=== PATIENT | male | born 1930 | race Caucasian/White ===

== ENCOUNTER 2017-08-15 06:38 | Emergency (ER) | payer MEDICARE, OTHER ==
[~2017-08-15] VITALS: Ht 175.3 cm; Wt 72.7 kg
[~2017-08-15 06:38] MED LIST: CALA180T PO; KCL10C PO; LEVA750T PO; SYMB80AE INH; Z.0.WALKERFRONT
[2017-08-15 06:40] VITALS: BP 142/86; PULSE 102; RESP 16; TEMP 98.5; O2SAT 98
[2017-08-15 06:46] VITALS: BP 145/87; PULSE 114; RESP 21; O2SAT 93
[2017-08-15] MEDS ORDERED: FURO40TA PO (06:53)
[2017-08-15] MEDS ORDERED: SYMB80AE INH (06:53)
[2017-08-15] MEDS ORDERED: VERA120T3 PO (06:53)
[2017-08-15 06:56] VITALS: O2SAT 95
[2017-08-15 07:13] VITALS: O2SAT 97
[2017-08-15] MEDS ORDERED: oxyCODONE/ACETAMINOPHEN 5 MG/325 MG TAB PO ONE (07:15)
[2017-08-15 07:24] VITALS: BP 128/82; PULSE 107; RESP 16; O2SAT 97
[2017-08-15] MEDS ORDERED: SODIUM CHLORIDE 0.9% FLUSH 10 ML FLUSH IV FLUSH PRN (07:30)
[2017-08-15] MEDS ORDERED: SODIUM CHLORID 0.9% 500 ML INJ 500 ML IV ONE (07:30)
[2017-08-15 07:43] LABS: AUTOMATED NEUTROPHIL # 7.4 TH/MM3 (1.8-7.7); BASOPHIL % 0.5 % (0.0-2.0); EOSINOPHIL # 0.8 TH/MM3 (0-0.4); EOSINOPHIL % 8.4 % (0.0-4.0); HEMATOCRIT 36.8 % (39.0-51.0); LYMPH % 9.2 % (9.0-44.0); LYMPHOCYTE # 0.9 TH/MM3 (1.0-4.8); MEAN CELL VOLUME 81.7 FL (80.0-100.0); MEAN CORPUSCULAR HEMOGLOBIN 27.2 PG (27.0-34.0); MEAN CORPUSCULAR HGB CONC 33.3 % (32.0-36.0); MONO % 7.1 % (0.0-8.0); NEUT % 74.8 % (16.0-70.0); PLATELET COUNT 59 TH/MM3 (150-450); RED CELL DISTRIBUTION WIDTH 18.8 % (11.6-17.2); WHITE BLOOD COUNT 9.9 TH/MM3 (4.0-11.0)
[2017-08-15] MEDS ORDERED: VERAPAMIL HCL 180 MG SUSTAINED RELEASE TAB PO ONE (07:45)
[2017-08-15 07:56] LABS: HEMO FLAGS AUTO DIFF
[2017-08-15 08:00] LABS: POTASSIUM 4.1 MEQ/L (3.5-5.1)
[2017-08-15] MEDS ORDERED: TRAM50TA PO (08:16)
--- NOTE | 2017-08-15 08:17 | PD ---
HPI Chief Complaint: Fall Time Seen by Provider: 07:05 Travel History International Travel<30 days: No Contact w/Intl Traveler<30days: No Traveled to known affect area: No History of Present Illness HPI 86 yo M c/o L chest pain after a mechanical fall yesterday afternoon while the patient was in the bathroom. No head trauma or LOC. L chest wall pain worsened overnight, worse with deep inspiration. No fever or cough. No [place] or dyspnea at rest. Pt did not take verapamil this morning. onset sudden. severity moderate. PFSH Past Medical History Asthma: Yes Anxiety: No Depression: No Heart Rhythm Problems: No Cancer: No Cardiovascular Problems: No High Cholesterol: No Chest Pain: No Congestive Heart Failure: No COPD: No Cerebrovascular Accident: Yes Endocrine: No Genitourinary: No Hepatitis: Yes (HEPATITIS C) Hypertension: Yes Immune Disorder: No Implanted Vascular Access Dvce: No Musculoskeletal: No Neurologic: No Psychiatric: No Reproductive: No Respiratory: Yes Sleep Apnea: No Past Surgical History Abdominal Surgery: Yes (HERNIA) AICD: No Appendectomy: Yes Arteriovenous Shunt: No Cardiac Surgery: No Ear Surgery: No Endocrine Surgery: No Eye Surgery: No Genitourinary Surgery: No Gynecologic Surgery: No Insulin Pump: No Joint Replacement: No Oral Surgery: No Pacemaker: No Thoracic Surgery: No Other Surgery: Yes Social History Alcohol Use: No Tobacco Use: No Substance Use: No Allergies-Medications (Allergen,Severity, Reaction): Coded Allergies: aspirin (Unverified Allergy, Severe, ANAPYLACTIC, 07/05/17) Reported Meds & Prescriptions Reported Meds & Active Scripts Active Tramadol (Tramadol HCl) 50 Mg Tab 50 Mg PO Q8H PRN Walker Front Wheel (Z.0.walkerfront) Device 1 Unit Levaquin 750 Mg Tab (Levofloxacin) 750 Mg Tab 750 Mg PO DAILY Reported Verapamil (Verapamil HCl) 120 Mg Tab 180 Mg PO BID Furosemide 40 Mg Tab 40 Mg PO DAILY Symbicort Inh (Budesonide/Formoterol Fumarate) 80-4.5 Mcg/Act Aero 2 Puff INH Q12HR Symbicort (Budesonide/Formoterol Fumarate) 80 Mcg/4.5 Mcg Aer 2 Puff INH BID * SHAKE WELL BEFORE USE * Verapamil Hcl Er (Verapamil HCl) 180 Mg Tab 180 Mg PO DAILY KCl 10 Meq Cap (Potassium Chloride) 10 Meq Capcr 5 Meq PO HS Review of Systems Except as stated in HPI: all other systems reviewed are Neg General / Constitutional: No: Fever Neurologic: No: Incontinence, Seizures, Sensory Disturbance Physical Exam Narrative GENERAL: 86 yo M, WNWD, NAD SKIN: Warm and dry. HEAD: Atraumatic. Normocephalic. EYES: Pupils equal and round. No scleral icterus. No injection or drainage. ENT: No nasal bleeding or discharge. Mucous membranes pink and moist. NECK: Trachea midline. No JVD. CARDIOVASCULAR:Regular rhythm. Rate approx 105. RESPIRATORY: Lung sounds present bilaterally. Normal respiratory rate. Lung sound clear. No flailed chest. GASTROINTESTINAL: Abdomen soft, non-tender, nondistended. Hepatic and splenic margins not palpable. MUSCULOSKELETAL: Extremities without clubbing, cyanosis, or edema. No obvious deformities. NEUROLOGICAL: Awake and alert. No obvious cranial nerve deficits. Motor grossly within normal limits. Five out of 5 muscle strength in the arms and legs. Normal speech. PSYCHIATRIC: Appropriate mood and affect; insight and judgment normal. Data Data Last Documented VS Vital Signs Date Time Temp Pulse Resp B/P (MAP) Pulse Ox O2 Delivery O2 Flow Rate FiO2 08/15/17 07:24 107 16 128/82 (97) 97 Nasal Cannula 2.00 08/15/17 06:40 98.5 VS reviewed Orders Orders Chest, Pa & Lat (08/15/17 ) Oxycodone-Acetamin 5-325 Mg (Percocet (08/15/17 07:15) Resp Incentive Spirometry (08/15/17 ) Basic Metabolic Panel (Bmp) (08/15/17 07:18) Complete Blood Count With Diff (08/15/17 07:18) Iv Access Insert/Monitor (08/15/17 07:18) Ecg Monitoring (08/15/17 07:18) Oximetry (08/15/17 07:18) Sodium Chloride 0.9% Flush (Ns Flush) (08/15/17 07:30) Sodium Chlorid 0.9% 500 Ml Inj (Ns 500 M (08/15/17 07:30) Verapamil Sr (Isoptin Sr) (08/15/17 07:45) Labs Laboratory Tests Test 08/15/17 07:30 White Blood Count 9.9 TH/MM3 Red Blood Count 4.50 MIL/MM3 Hemoglobin 12.2 GM/DL Hematocrit 36.8 % Mean Corpuscular Volume 81.7 FL Mean Corpuscular Hemoglobin 27.2 PG Mean Corpuscular Hemoglobin Concent 33.3 % Red Cell Distribution Width 18.8 % Platelet Count 59 TH/MM3 Mean Platelet Volume 7.9 FL Neutrophils (%) (Auto) 74.8 % Lymphocytes (%) (Auto) 9.2 % Monocytes (%) (Auto) 7.1 % Eosinophils (%) (Auto) 8.4 % Basophils (%) (Auto) 0.5 % Neutrophils # (Auto) 7.4 TH/MM3 Lymphocytes # (Auto) 0.9 TH/MM3 Monocytes # (Auto) 0.7 TH/MM3 Eosinophils # (Auto) 0.8 TH/MM3 Basophils # (Auto) 0.0 TH/MM3 CBC Comment AUTO DIFF Differential Comment AUTO DIFF CONFIRMED Platelet Estimate LOW Platelet Morphology Comment NORMAL Ovalocytes 1+ Acanthocytes 1+ Blood Urea Nitrogen 14 MG/DL Creatinine 0.86 MG/DL Random Glucose 132 MG/DL Calcium Level 8.9 MG/DL Sodium Level 138 MEQ/L Potassium Level 4.1 MEQ/L Chloride Level 110 MEQ/L Carbon Dioxide Level 22.0 MEQ/L Anion Gap 6 MEQ/L Estimat Glomerular Filtration Rate 85 ML/MIN MDM Medical Decision Making Medical Screen Exam Complete: Yes Emergency Medical Condition: Yes Medical Record Reviewed: Yes Differential Diagnosis PTX, rib fracture, pulmonary contusion, flail chest, PNA, anemia, renal failure , infection Narrative Course CBC & BMP Diagram 08/15/17 07:30 Calcium Level 8.9 Mild tachycardia, likely pain, mild dehydration and overdue for Verapamil Pain controlled 300cc NS Reassessed at 815AM, reports feeling much better Incentive spirometry instructions D/c with pain control Return precautions discussed Diagnosis Primary Impression: Fall Qualified Codes: W19.XXXA - Unspecified fall, initial encounter Additional Impressions: Contusion of rib on left side Qualified Codes: S20.212A - Contusion of left front wall of thorax, initial encounter Tachycardia Referrals: Primary Care Physician 2 days Med/Other Pt SpecificInfo: Prescription(s) given Scripts Tramadol (Tramadol) 50 Mg Tab 50 MG PO Q8H Y for PAIN SCALE 6 TO 10, #30 TAB 0 Refills Prov: Bry Fuchs MD 08/15/17 Disposition: 01 DISCHARGE HOME Condition: Stable Bry Fuchs MD Aug 15, 2017 08:16
[2017-08-15 08:41] LABS: ACANTHOCYTES 1+ (NORMAL); OVALOCYTES 1+ (NORMAL)
[2017-08-15 08:42] LABS: PLATELET ESTIMATE SMEAR LOW (NORMAL); PLATELET MORPHOLOGY NORMAL (NORMAL); SCAN/DIFF AUTO DIFF CONFIRMED
[2017-08-15 09:23] VITALS: BP 140/85
--- NOTE | 2017-08-15 09:43 | RADRPT ---
EXAM DATE/TIME: 08/15/2017 08:05 [facility] COMPARISON: CHEST SINGLE AP, October 22, 2015, 21:26. INDICATIONS : Left upper chest pain after feeling dizzy and falling. MEDICAL HISTORY : None. SURGICAL HISTORY : Hiatal hernia repair. ENCOUNTER: Initial ACUITY: 1 day PAIN SCORE: 9/10 LOCATION: Left chest Upper left chest. FINDINGS: There are subtle parenchymal densities in the upper lobe suspect for underlying airspace disease vers us atelectasis. No effusion or consolidation. Cardiomegaly. Degenerative changes of the spine. CONCLUSION: Upper lobe airspace disease versus atelectasis. Prosper Garcia MD on August 15, 2017 at 9:42 Board Certified Radiologist. This report was verified electronically.
--- NOTE | 2017-08-15 13:02 | EKG ---
Date Performed: 08/15/2017 Time Performed: 06:55:51 PTAGE: 86 years EKG: The underlying rhythm appears to be sinus with resolution of a previous first degree AV blo ck Right bundle branch block, which is old ABNORMAL ECG PREVIOUS TRACING : 10/23/2015 17.08 DOCTOR: Erik Mcrae Interpretating Date/Time 08/15/2017 13:51:43
== END 2017-08-15 09:00 | disposition home or self-care (01) ==
LOC: NEPC 06:38
DX: S20.212A Contusion of left front wall of thorax, initial encounter (principal); W19.XXXA Unspecified fall, initial encounter; J45.909 Unspecified asthma, uncomplicated
CPT/HCPCS: 71020; 80048; 85025; 93005; 94150; 96360; 99284; J7040

== ENCOUNTER 2017-08-31 18:26 | Emergency (ER) | payer OTHER ==
[~2017-08-31] VITALS: Ht 175.3 cm; Wt 76.0 kg
[~2017-08-31 18:26] MED LIST changes: +FURO40TA PO; +TRAM50TA PO; +VERA120T3 PO
[2017-08-31] MEDS ORDERED: GADODIAMIDE PF 287 MG/ML 5 ML VIAL (for RAD MRI) IV PUSH ONE (18:27)
[2017-08-31 18:30] VITALS: BP 122/74; PULSE 87; RESP 20; TEMP 98.6; O2SAT 94
[2017-08-31 18:47] VITALS: BP 121/75; PULSE 81; RESP 17
[2017-08-31 18:58] VITALS: O2SAT 97
[2017-08-31] MEDS ORDERED: SODIUM CHLORIDE 0.9% FLUSH 10 ML FLUSH IVF PRN (19:00)
--- NOTE | 2017-08-31 19:03 | PD ---
HPI Chief Complaint: Head Injury Time Seen by Provider: 18:55 Travel History International Travel<30 days: No Contact w/Intl Traveler<30days: No Traveled to known affect area: No History of Present Illness HPI Patient comes in for reevaluation status post fall on the of last month. Patient was seen and evaluated the emergency department discharged home at that time. Patient followed up with primary care doctor's office today and sent back to the emergency department for CTs secondary the patient's history of thrombocytopenia. Patient is followed by hematology for this. Patient reports he continues having intermittent headaches a states her left occipital lobe along with left-sided neck pain that comes and goes. Patient's states that he is also seems to be more confused since the fall. States she still given him tramadol thinking that might be causing some of his confusion. Patient denies any pain currently. Patient was pain is lingering pain improves with Tylenol. Patient reports she doesn't eat or is having bad stress makes his symptoms worse. PFSH Past Medical History Asthma: Yes Anxiety: No Depression: No Heart Rhythm Problems: No Cancer: No Cardiovascular Problems: No High Cholesterol: No Chest Pain: No Congestive Heart Failure: No COPD: No Cerebrovascular Accident: Yes Endocrine: No Gastrointestinal Disorders: No Genitourinary: No Hepatitis: Yes (HEPATITIS C) Hypertension: Yes Immune Disorder: No Implanted Vascular Access Dvce: No Musculoskeletal: No Neurologic: No Psychiatric: No Reproductive: No Respiratory: Yes Sleep Apnea: No Past Surgical History Abdominal Surgery: Yes (HERNIA) AICD: No Appendectomy: Yes Arteriovenous Shunt: No Cardiac Surgery: No Ear Surgery: No Endocrine Surgery: No Eye Surgery: No Genitourinary Surgery: No Gynecologic Surgery: No Insulin Pump: No Joint Replacement: No Oral Surgery: No Pacemaker: No Thoracic Surgery: No Other Surgery: Yes Social History Alcohol Use: No Tobacco Use: No Substance Use: No Allergies-Medications (Allergen,Severity, Reaction): Coded Allergies: aspirin (Unverified Allergy, Severe, ANAPYLACTIC, 08/31/17) Reported Meds & Prescriptions Reported Meds & Active Scripts Active Reported Verapamil (Verapamil HCl) 120 Mg Tab 180 Mg PO BID Furosemide 40 Mg Tab 40 Mg PO DAILY Symbicort Inh (Budesonide/Formoterol Fumarate) 80-4.5 Mcg/Act Aero 2 Puff INH Q12HR Review of Systems Except as stated in HPI: all other systems reviewed are Neg Physical Exam Narrative GENERAL: Well-developed, well nourished, in no acute distress, and non-ill appearing. SKIN: Focused skin assessment warm and dry. HEAD: Atraumatic. Normocephalic. EYES: Pupils equal and round. EOMI. No scleral icterus. No injection or drainage. ENT: No nasal bleeding or discharge. Mucous membranes pink and moist. NECK: Trachea midline. No tenderness or crepitus or midline cervical spine. Supple. No nuclear rigidity. CARDIOVASCULAR: Regular rate and rhythm. No murmur appreciated. RESPIRATORY: No accessory muscle use. No respiratory distress. Clear to auscultation. Breath sounds equal bilaterally. MUSCULOSKELETAL: No obvious deformities. No clubbing. No cyanosis. No edema. Full range of motion. NEUROLOGICAL: Awake and alert. No obvious cranial nerve deficits. Motor grossly within normal limits. Normal speech. PSYCHIATRIC: Appropriate mood and affect; insight and judgment normal. Data Data Last Documented VS Vital Signs Date Time Temp Pulse Resp B/P (MAP) Pulse Ox O2 Delivery O2 Flow Rate FiO2 08/31/17 22:38 08/31/17 21:36 70 16 98 Room Air 08/31/17 18:30 98.6 Orders Orders Complete Blood Count With Diff (08/31/17 18:55) Basic Metabolic Panel (Bmp) (08/31/17 18:55) Ct Brain W/O Iv Contrast(Rout) (08/31/17 18:55) Ecg Monitoring (08/31/17 18:55) Iv Access Insert/Monitor (08/31/17 18:55) Oximetry (08/31/17 18:55) Sodium Chloride 0.9% Flush (Ns Flush) (08/31/17 19:00) Ct Cerv Spine W/O Contrast (08/31/17 ) Mri Brain W&W/O Contrast (08/31/17 ) Gadodiamide Pf Inj (Omniscan Pf Inj) (08/31/17 18:27) Ed Discharge Order (08/31/17 22:12) Labs Laboratory Tests Test 08/31/17 19:10 White Blood Count 4.0 TH/MM3 Red Blood Count 4.36 MIL/MM3 Hemoglobin 11.8 GM/DL Hematocrit 36.4 % Mean Corpuscular Volume 83.5 FL Mean Corpuscular Hemoglobin 27.2 PG Mean Corpuscular Hemoglobin Concent 32.5 % Red Cell Distribution Width 19.2 % Platelet Count 72 TH/MM3 Mean Platelet Volume 7.6 FL Neutrophils (%) (Auto) 56.1 % Lymphocytes (%) (Auto) 22.2 % Monocytes (%) (Auto) 7.6 % Eosinophils (%) (Auto) 12.8 % Basophils (%) (Auto) 1.3 % Neutrophils # (Auto) 2.2 TH/MM3 Lymphocytes # (Auto) 0.9 TH/MM3 Monocytes # (Auto) 0.3 TH/MM3 Eosinophils # (Auto) 0.5 TH/MM3 Basophils # (Auto) 0.1 TH/MM3 CBC Comment AUTO DIFF Differential Comment AUTO DIFF CONFIRMED Platelet Estimate LOW Platelet Morphology Comment NORMAL Tear Drop Cells 1+ Ovalocytes 1+ Blood Urea Nitrogen 11 MG/DL Creatinine 0.82 MG/DL Random Glucose 209 MG/DL Calcium Level 8.6 MG/DL Sodium Level 138 MEQ/L Potassium Level 4.0 MEQ/L Chloride Level 106 MEQ/L Carbon Dioxide Level 23.8 MEQ/L Anion Gap 8 MEQ/L Estimat Glomerular Filtration Rate 89 ML/MIN MDM Medical Decision Making Medical Screen Exam Complete: Yes Emergency Medical Condition: Yes Differential Diagnosis Post traumatic headache, hemorrhage, musculoskeletal pain, strain, other Narrative Course Patient was seen and examined. IV was established and patient was placed on cardiac monitoring. Initial laboratory radiological studies were ordered. Discussed abnormal CT findings with Dr. Flores, who recommends obtaining MRI. Discussed this with patient and his , who is agreeable to have MRI. Patient in no obvious distress upon re-evaluation. All pertinent laboratory/ Radiology result(s) discussed with patient/family. Discussed patient with Dr. Flores prior to discharge, who is in agreement with plan of care and disposition. Any questions/concerns in reference to patient diagnosis/condition discussed and clarified prior to patient's discharge. Reinforced sheer importance of close follow up with patient's primary physician or primary care clinic. Instructed patient to return to ED immediately, if symptoms return/worsen. Patient showed understanding of above instructions. Further instructions and recommendations were detailed in discharge paperwork. Patient left without difficulty out of ED at discharge. Diagnosis Primary Impression: Headache Qualified Codes: R51 - Headache Additional Impression: Neck pain Patient Instructions: Acute Neck Pain (ED), General Headache (ED), General Instructions Additional Instructions: Follow-up with your primary care physician and/or neurologist next week for reevaluation. Continue using [id number] Tylenol as needed for headache and/or pain. Follow instructions on the packaging. Return to the emergency department if symptoms get worse. Disposition: 01 DISCHARGE HOME Condition: Stable Hector Kwan Aug 31, 2017 19:03
[2017-08-31 19:11] VITALS: BP 126/77; PULSE 87; RESP 18; O2SAT 97
[2017-08-31 19:32] LABS: AUTOMATED NEUTROPHIL # 2.2 TH/MM3 (1.8-7.7); BASOPHIL # 0.1 TH/MM3 (0-0.2); BASOPHIL % 1.3 % (0.0-2.0); EOSINOPHIL # 0.5 TH/MM3 (0-0.4); EOSINOPHIL % 12.8 % (0.0-4.0); HEMATOCRIT 36.4 % (39.0-51.0); LYMPH % 22.2 % (9.0-44.0); LYMPHOCYTE # 0.9 TH/MM3 (1.0-4.8); MEAN CELL VOLUME 83.5 FL (80.0-100.0); MEAN CORPUSCULAR HEMOGLOBIN 27.2 PG (27.0-34.0); MEAN CORPUSCULAR HGB CONC 32.5 % (32.0-36.0); MONO % 7.6 % (0.0-8.0); NEUT % 56.1 % (16.0-70.0); PLATELET COUNT 72 TH/MM3 (150-450); RED BLOOD COUNT 4.36 MIL/MM3 (4.50-5.90); RED CELL DISTRIBUTION WIDTH 19.2 % (11.6-17.2)
[2017-08-31 19:33] LABS: HEMO FLAGS AUTO DIFF
--- NOTE | 2017-08-31 20:02 | RADRPT ---
EXAM DATE/TIME: 08/31/2017 19:43 [facility] COMPARISON: No previous studies available for comparison. INDICATIONS : Headaches that started one week ago. RADIATION DOSE: 46.71 CTDIvol (mGy) MEDICAL HISTORY : Hypertension. Hepatitis C. CVA. SURGICAL HISTORY : Appendectomy. ENCOUNTER: Initial ACUITY: 1 week PAIN SCALE: 6/10 LOCATION: Bilateral cranial TECHNIQUE: Multiple contiguous axial images were obtained of the head. Using automated exposure control and adj ustment of the mA and/or kV according to patient size, radiation dose was kept as low as reasonably a chievable to obtain optimal diagnostic quality images. DICOM format image data is available electro nically for review and comparison. FINDINGS: There is abnormal low attenuation in the posterior white matter on the right side probably from prior ischemic infarct. No significant mass effect. Cannot completely exclude edema. Nodular surface. No a bnormal extra-axial fluid collections. Extensive mucosal thickening in the paranasal sinus with previ ous endoscopic sinus surgery and creation of nasoantral windows bilaterally. CONCLUSION: 1. Abnormal low attenuation in the right periventricular white matter especially posteriorly. This pr obably relates to prior ischemic change but MRI brain recommended with contrast to exclude underlying lesion. Josh Lyle MD on August 31, 2017 at 19:57 Board Certified Radiologist. This report was verified electronically.
[2017-08-31 20:07] LABS: OVALOCYTES 1+ (NORMAL); PLATELET ESTIMATE SMEAR LOW (NORMAL); PLATELET MORPHOLOGY NORMAL (NORMAL); SCAN/DIFF AUTO DIFF CONFIRMED; TEARDROP RBCS 1+ (NORMAL)
--- NOTE | 2017-08-31 20:14 | RADRPT ---
EXAM DATE/TIME: 08/31/2017 19:43 [facility] COMPARISON: No previous studies available for comparison. INDICATIONS : Neck pain for one weeks. RADIATION DOSE: 40.83 CTDIvol (mGy) MEDICAL HISTORY : Hepatitis C. Hypertension. CVA SURGICAL HISTORY : Appendectomy. ENCOUNTER: Initial ACUITY: 1 week PAIN SCALE: 6/10 LOCATION: Bilateral neck region. TECHNIQUE: Volumetric scanning of the cervical spine was performed. Multiplanar reconstructions in the sagittal, coronal and oblique axial planes were performed. Using automated exposure control and adjustment o f the mA and/or kV according to patient size, radiation dose was kept as low as reasonably achievable to obtain optimal diagnostic quality images. DICOM format image data is available electronically f or review and comparison. FINDINGS: There is exaggeration of the normal cervical lordosis. Advanced degenerative disc disease is present. Minimal grade 1 retrolisthesis of C3 on C4. No central bony canal stenosis. Left-sided foraminal phuong nosis present at C3-4 and mild bilateral foraminal stenosis at C4-5-6. No acute fracture. CONCLUSION: 1. No acute fracture. No canal stenosis. Degenerative changes as above. Josh Lyle MD on August 31, 2017 at 20:10 Board Certified Radiologist. This report was verified electronically.
[2017-08-31 21:03] LABS: BICARBONATE 23.8 MEQ/L (21.0-32.0)
[2017-08-31 21:36] VITALS: BP 135/67; PULSE 70; RESP 16; O2SAT 98
--- NOTE | 2017-08-31 21:54 | RADRPT ---
EXAM DATE/TIME: 08/31/2017 20:54 [facility] COMPARISON: No previous studies available for comparison. INDICATIONS : Cephalgia. CONTRAST: 15 cc Omniscan (gadodiamide) IV MEDICAL HISTORY : Hypertension. Stroke Asthma. SURGICAL HISTORY : Hernia repair. Dental implants. Sinus. ENCOUNTER: Subsequent ACUITY: 1 day PAIN SCORE: 3/10 LOCATION: cranial TECHNIQUE: Multiplanar, multisequence MRI of the brain was performed both prior to and following the administrat ion of paramagnetic contrast. FINDINGS: There is a remote infarct in the right parietal lobe predominantly involving the deep white matter wi th several lacunar infarcts. No recent infarct. No mass effect or midline shift. No hydrocephalus. No abnormal enhancement post contrast. Pituitary gland normal in size. Extensive mucosal thickening in the paranasal sinuses with partial opacification left frontal sinus and remaining ethmoid air cells. CONCLUSION: 1. No acute findings. 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 No abnormal enhancement. Josh Lyle MD on August 31, 2017 at 21:50 Board Certified Radiologist. This report was verified electronically.
== END 2017-08-31 22:39 | disposition home or self-care (01) ==
LOC: NEPE 18:26
DX: R51 Headache (principal); M54.2 Cervicalgia; Z91.81 History of falling; J45.909 Unspecified asthma, uncomplicated; I10 Essential (primary) hypertension
CPT/HCPCS: 70450; 70553; 72125; 80048; 85025; 99285; A9579

== ENCOUNTER 2018-01-20 13:52 | Observation (INO) | payer OTHER ==
[~2018-01-20] VITALS: Ht 175.3 cm; Wt 80.0 kg
[~2018-01-20 13:52] MED LIST changes: -CALA180T PO; -KCL10C PO; -LEVA750T PO; -TRAM50TA PO; -Z.0.WALKERFRONT
[2018-01-20] MEDS ORDERED: IOHEXOL 350 MG/ML 10 ML VIAL (for RAD DIAG) IVCONTRAST ONE (13:53)
[2018-01-20 13:59] VITALS: BP 159/74; PULSE 90; RESP 20; TEMP 98.2; O2SAT 94
[2018-01-20] MEDS ORDERED: SODIUM CHLORID 0.9% 500 ML INJ 500 ML IV ONE (15:45)
--- NOTE | 2018-01-20 15:48 | RADRPT ---
EXAM DATE/TIME: 01/20/2018 15:24 [facility] COMPARISON: CHEST SINGLE AP, October 22, 2015, 21:26. INDICATIONS : Shakiness. MEDICAL HISTORY : Hypertension. Asthma SURGICAL HISTORY : None. ENCOUNTER: Initial ACUITY: 1 day PAIN SCORE: 0/10 LOCATION: Bilateral chest. FINDINGS: New bibasilar parenchymal changes worse on the left suspicious for inflammatory process. Prominent h eart silhouette without failure. No pneumothorax or effusion. The portion of the bony skeleton visua lized is unremarkable. CONCLUSION: Parenchymal changes on the left as above Jeramy Romo MD FACR on January 20, 2018 at 15:44 Board Certified Radiologist. This report was verified electronically.
[2018-01-20 15:54] LABS: AUTOMATED NEUTROPHIL # 8.1 TH/MM3 (1.8-7.7); BASOPHIL % 0.3 % (0.0-2.0); EOSINOPHIL # 0.1 TH/MM3 (0-0.4); EOSINOPHIL % 0.8 % (0.0-4.0); HEMATOCRIT 37.2 % (39.0-51.0); HEMOGLOBIN 12.2 GM/DL (13.0-17.0); LYMPHOCYTE # 0.4 TH/MM3 (1.0-4.8); MEAN CELL VOLUME 84.2 FL (80.0-100.0); MEAN CORPUSCULAR HEMOGLOBIN 27.7 PG (27.0-34.0); MEAN CORPUSCULAR HGB CONC 32.9 % (32.0-36.0); MEAN PLATELET VOLUME 7.7 FL (7.0-11.0); MONO % 5.9 % (0.0-8.0); MONOCYTE # 0.5 TH/MM3 (0-0.9); PLATELET COUNT 54 TH/MM3 (150-450); RED BLOOD COUNT 4.42 MIL/MM3 (4.50-5.90); RED CELL DISTRIBUTION WIDTH 17.7 % (11.6-17.2)
--- NOTE | 2018-01-20 16:00 | PD ---
HPI Chief Complaint: General Weakness Time Seen by Provider: 14:58 Travel History International Travel<30 days: No Contact w/Intl Traveler<30days: No Traveled to known affect area: No History of Present Illness HPI 87-year-old male with a history of CVA with left-sided residual weakness presents emergency department with his with concerns of feeling "shaky" and "cold" while on his way to lunch today. states that they are on their way to [facility] when they decided to come here to [place] for evaluation of his shakiness. Note that patient and are rather poor historians. Patient denies fevers, nausea, vomiting, diarrhea, abdominal pain. Patient is not on a blood thinner and he does not take aspirin. They cannot tell me why he had a stroke although believe it may be related to high blood pressure. Denies history of cardiac or pulmonary issues. Has a history of high blood pressure. PFSH Past Medical History Asthma: Yes Anxiety: No Depression: No Heart Rhythm Problems: No Cancer: No Cardiovascular Problems: No High Cholesterol: No Chest Pain: No Congestive Heart Failure: No COPD: No Cerebrovascular Accident: Yes Endocrine: No Gastrointestinal Disorders: No Genitourinary: No Hepatitis: Yes (HEPATITIS C) Hypertension: Yes Immune Disorder: No Implanted Vascular Access Dvce: No Musculoskeletal: No Neurologic: No Psychiatric: No Reproductive: No Respiratory: Yes (ASTHMA) Sleep Apnea: No Past Surgical History Abdominal Surgery: Yes (HERNIA) AICD: No Appendectomy: Yes Arteriovenous Shunt: No Cardiac Surgery: No Ear Surgery: No Endocrine Surgery: No Eye Surgery: No Genitourinary Surgery: No Gynecologic Surgery: No Insulin Pump: No Joint Replacement: No Oral Surgery: No Pacemaker: No Thoracic Surgery: No Other Surgery: Yes Social History Alcohol Use: No Tobacco Use: No Substance Use: No Allergies-Medications (Allergen,Severity, Reaction): Coded Allergies: aspirin (Unverified Allergy, Severe, ANAPYLACTIC, 01/20/18) Reported Meds & Prescriptions Reported Meds & Active Scripts Active Reported Verapamil (Verapamil HCl) 120 Mg Tab 180 Mg PO BID Furosemide 40 Mg Tab 40 Mg PO DAILY Symbicort Inh (Budesonide/Formoterol Fumarate) 80-4.5 Mcg/Act Aero 2 Puff INH Q12HR Review of Systems Except as stated in HPI: all other systems reviewed are Neg Physical Exam Narrative GENERAL: Well-developed, well-nourished in no apparent distress. Patient alert to self, place, believes it is fall. (unsure of baseline) SKIN: Focused skin assessment warm/dry. No rashes or lesions present. HEAD: Atraumatic. Normocephalic. EYES: Pupils equal and round. No scleral icterus. No injection or drainage. EOMI ENT: No nasal bleeding or discharge. Mucous membranes pink and moist. NECK: Trachea midline. No JVD. No midline tenderness CARDIOVASCULAR: Regular rate and rhythm. No murmur appreciated. RESPIRATORY: No accessory muscle use. Clear to auscultation. Breath sounds equal bilaterally. GASTROINTESTINAL: Abdomen soft, non-tender, nondistended. Hepatic and splenic margins not palpable. MUSCULOSKELETAL: No obvious deformities. No clubbing. No cyanosis. No edema. Homans sign negative bilaterally NEUROLOGICAL: Awake and alert. No obvious cranial nerve deficits. Motor grossly within normal limits. Normal speech. PSYCHIATRIC: Appropriate mood and affect; insight and judgment normal. Data Data Last Documented VS Vital Signs Date Time Temp Pulse Resp B/P (MAP) Pulse Ox O2 Delivery O2 Flow Rate FiO2 01/20/18 13:59 98.2 90 20 159/74 (102) 94 Orders Orders Prothrombin Time / Inr (Pt) (01/20/18 15:10) Act Partial Throm Time (Ptt) (01/20/18 15:10) Complete Blood Count With Diff (01/20/18 15:10) Comprehensive Metabolic Panel (01/20/18 15:10) Creatine Kinase (Cpk) (01/20/18 15:10) Troponin I (01/20/18 15:10) Urinalysis - C+S If Indicated (01/20/18 15:10) Ct Brain W/O Iv Contrast(Rout) (01/20/18 15:10) Chest, Single Ap (01/20/18 15:10) Ecg Monitoring (01/20/18 15:10) Iv Access Insert/Monitor (01/20/18 15:10) Oximetry (01/20/18 15:10) Blood Glucose (01/20/18 15:10) Sodium Chlorid 0.9% 500 Ml Inj (Ns 500 M (01/20/18 15:45) Ct Pulmonary Angiogram (01/20/18 ) Vascular Access Team Consult/P PRN (01/20/18 17:44) Vascular Poc Ultrasound (01/20/18 ) Iohexol 350 Inj (Omnipaque 350 Inj) (01/20/18 13:53) Azithromycin Inj (Zithromax Inj) (01/20/18 19:45) Ceftriaxone Inj (Rocephin Inj) (01/20/18 19:45) Albuterol-Ipratropium Neb (Duoneb Neb) (01/20/18 19:45) Admit Order (Ed Use Only) (01/20/18 19:49) Labs Laboratory Tests Test 01/20/18 15:41 01/20/18 17:35 White Blood Count 9.0 TH/MM3 Red Blood Count 4.42 MIL/MM3 Hemoglobin 12.2 GM/DL Hematocrit 37.2 % Mean Corpuscular Volume 84.2 FL Mean Corpuscular Hemoglobin 27.7 PG Mean Corpuscular Hemoglobin Concent 32.9 % Red Cell Distribution Width 17.7 % Platelet Count 54 TH/MM3 Mean Platelet Volume 7.7 FL Neutrophils (%) (Auto) 89.0 % Lymphocytes (%) (Auto) 4.0 % Monocytes (%) (Auto) 5.9 % Eosinophils (%) (Auto) 0.8 % Basophils (%) (Auto) 0.3 % Neutrophils # (Auto) 8.1 TH/MM3 Lymphocytes # (Auto) 0.4 TH/MM3 Monocytes # (Auto) 0.5 TH/MM3 Eosinophils # (Auto) 0.1 TH/MM3 Basophils # (Auto) 0.0 TH/MM3 CBC Comment AUTO DIFF Differential Comment AUTO DIFF CONFIRMED Platelet Estimate LOW Platelet Morphology Comment NORMAL Ovalocytes 1+ Prothrombin Time 12.6 SEC Prothromb Time International Ratio 1.2 RATIO Activated Partial Thromboplast Time 26.9 SEC Blood Urea Nitrogen 13 MG/DL Creatinine 0.80 MG/DL Random Glucose 105 MG/DL Total Protein 6.8 GM/DL Albumin 3.0 GM/DL Calcium Level 9.0 MG/DL Alkaline Phosphatase 83 U/L Aspartate Amino Transf (AST/SGOT) 33 U/L Alanine Aminotransferase (ALT/SGPT) 32 U/L Total Bilirubin 1.8 MG/DL Sodium Level 140 MEQ/L Potassium Level 4.2 MEQ/L Chloride Level 106 MEQ/L Carbon Dioxide Level 27.2 MEQ/L Anion Gap 7 MEQ/L Estimat Glomerular Filtration Rate 92 ML/MIN Total Creatine Kinase 76 U/L Troponin I LESS THAN 0.02 NG/ML Urine Color YELLOW Urine Turbidity CLEAR Urine pH 8.0 Urine Specific [place] 1.016 Urine Protein NEG mg/dL Urine Glucose (UA) NEG mg/dL Urine Ketones NEG mg/dL Urine Occult Blood TRACE Urine Nitrite NEG Urine Bilirubin NEG Urine Urobilinogen 2.0 MG/DL Urine Leukocyte Esterase NEG Urine RBC 7 /hpf Urine Mucus FEW /lpf Microscopic Urinalysis Comment CATH-CULT NOT IND MDM Medical Decision Making Medical Screen Exam Complete: Yes Emergency Medical Condition: Yes Differential Diagnosis metabolic disturbance, dementia, pneumonia, Narrative Course 87-year-old male with a history of asthma presents emergency department with his concerned about shaking that occurred while on the way to lunch today. Patient initially denied any other complaints although they are poor historians. Throughout the stay, she mentioned that he has had an increased cough and some shortness of breath recently. Says that he has had some episodes of "disorientation" that really is transient and resolves spontaneously. Vital signs initially heart rate 90, pulse oximetry 94% on room air. Throughout the visit, patient's heart rate has been steady about 115 and pulse oximetry 92-94%. Last Impressions Head CT 01/20/181509 Signed Impressions: Service Date/Time: Saturday, January 20, 2018 16:02 - CONCLUSION: Negative for acute process. Jeramy Romo MD FACR Chest X-Ray 01/20/18 1510 Signed Impressions: Service Date/Time: Saturday, January 20, 2018 15:24 - CONCLUSION: Parenchymal changes on the left as above Jeramy Romo MD FACR Labs show chronic, stable anemia. Because of patient's variation of mental status, hypoxia, and poor historian, ordered CT Pulmonary angiogram to r/o PE. 2LPM NC applied at he is persistently at 91%SaO2. Continues to rest comfortably in bed. SaO2 94-95% 2LPM NC. CT pulmonary angiogram without evidence of pulmonary embolus, cirrhosis with portal hypertension, atherosclerosis, scattered parenchymal infiltrates as well as scattered lung nodules. Will treat for pneumonia as he has hypoxia as well. Azithromycin and Rocephin ordered. DuoNeb 1 ordered. Patient will be admitted for developing pneumonia with hypoxia. Diagnosis Primary Impression: Pneumonia Qualified Codes: J18.1 - Lobar pneumonia, unspecified organism Additional Impression: Hypoxia Admitting Information Admitting Physician Requests: Admit Condition: Stable Sofia Jang Jan 20, 2018 16:00
[2018-01-20 16:03] LABS: INTERNATIONAL NORMALIZED RATIO 1.2 RATIO; PROTHROMBIN TIME - PATIENT 12.6 SEC (9.8-11.6)
[2018-01-20 16:16] LABS: ALT (GPT) 32 U/L (12-78); AST (GOT) 33 U/L (15-37); BICARBONATE 27.2 MEQ/L (21.0-32.0); BLOOD UREA NITROGEN 13 MG/DL (7-18); CHLORIDE 106 MEQ/L (98-107); GLOMERULAR FILTRATION RATE 92 ML/MIN (>89); GLUCOSE,RANDOM 105 MG/DL (74-106); SODIUM (NA) 140 MEQ/L (136-145)
[2018-01-20 16:21] LABS: ALKALINE PHOSPHATASE 83 U/L (45-117); TOTAL BILIRUBIN ADULT 1.8 MG/DL (0.2-1.0); TOTAL PROTEIN 6.8 GM/DL (6.4-8.2); TROPONIN I LESS THAN 0.02 NG/ML (0.02-0.05)
--- NOTE | 2018-01-20 16:29 | RADRPT ---
EXAM DATE/TIME: 01/20/2018 16:02 [facility] COMPARISON: CT BRAIN W/O CONTRAST, August 31, 2017, 19:43. INDICATIONS : Generalized weakness. RADIATION DOSE: 56.35 CTDIvol (mGy) MEDICAL HISTORY : Stroke. Hepatitis C. Hypertension. SURGICAL HISTORY : Appendectomy. ENCOUNTER: Initial ACUITY: 1 day PAIN SCALE: 0/10 LOCATION: Bilateral cranial TECHNIQUE: Multiple contiguous axial images were obtained of the head. Using automated exposure control and adj ustment of the mA and/or kV according to patient size, radiation dose was kept as low as reasonably a chievable to obtain optimal diagnostic quality images. DICOM format image data is available electro nically for review and comparison. FINDINGS: CEREBRUM: The ventricles are normal for age. No evidence of midline shift, mass lesion, hemorrhage or acute in farction. Minimal ischemic changes parietal occipital region on the right. No extra-axial fluid macy ections are seen. POSTERIOR FOSSA: The cerebellum and brainstem are intact. The 4th ventricle is midline. The cerebellopontine angle i s unremarkable. EXTRACRANIAL: The visualized portion of the orbits is intact. SKULL: The calvaria is intact. No evidence of skull fracture. CONCLUSION: Negative for acute process. Jeramy Romo MD FACR on January 20, 2018 at 16:26 Board Certified Radiologist. This report was verified electronically.
[2018-01-20 16:56] LABS: OVALOCYTES 1+ (NORMAL)
[2018-01-20 18:00] LABS: BILIRUBIN, URINE NEG (NEG); BLOOD, URINE TRACE (NEG); GLUCOSE,URINE NEG (NEG); KETONE, URINE NEG (NEG); MUCUS URINE FEW /lpf (OCC); NITRITE,URINE NEG (NEG); URINE COLOR YELLOW (YELLW/STRAW); URINE LEUKOCYTE ESTERASE NEG (NEG)
--- NOTE | 2018-01-20 19:33 | RADRPT ---
EXAM DATE/TIME: 01/20/2018 18:58 [facility] COMPARISON: CHEST SINGLE AP, January 20, 2018, 15:24. INDICATIONS : Cough,hypoxia,techycardia IV CONTRAST: 50 cc Omnipaque 350 (iohexol) IV RADIATION DOSE: 9.83 CTDIvol (mGy) MEDICAL HISTORY : Hepatitis C. Cerebrovascular disease. Hypertension. SURGICAL HISTORY : Appendectomy. ENCOUNTER: Initial ACUITY: 1 day PAIN SCALE: 0/10 LOCATION: chest TECHNIQUE: Volumetric scanning of the chest was performed using a pulmonary embolism protocol MIP images were re constructed. Using automated exposure control and adjustment of the mA and/or kV according to patien t size, radiation dose was kept as low as reasonably achievable to obtain optimal diagnostic quality images. DICOM format image data is available electronically for review and comparison. Follow-up recommendations for detected pulmonary nodules are based at a minimum on nodule size and pa tient risk factors according to Fleischner Society Guidelines. FINDINGS: There is a groundglass infiltrate in the left upper lobe, consolidation in the lingula and patchy air space disease in the lower lobes bilaterally. There is a pulmonary nodule in the left lower lobe dashawn uring 7 mm abutting the pleura. It nodules also seen in left lower lobe on image 74 measured shear th ere is a noncalcified nodule left lower lobe measuring 4.8 mm on image 86. There is crowding of the b ronchovascular markings in the right lower lobe proximally with focal consolidative opacity versus pa ssive atelectasis medially on image 66. The esophagus is diffusely dilated and fluid filled, there is evidence of previous gastrojejunostomy, and there is a containing hernia the esophageal hiatus. Miguelina nary artery calcification is present. There is no evidence of pulmonary embolism. The liver is cirrho tic and periportal adenopathy and splenomegaly. CONCLUSION: 1. No evidence for pulmonary embolus. 2. Cirrhosis and portal hypertension. 3. Atherosclerosis. 4. Scattered parenchymal infiltrates as well as scattered lung nodules. Three-month followup CT chest recommended. Prosper Garcia MD on January 20, 2018 at 19:29 Board Certified Radiologist. This report was verified electronically.
[2018-01-20] MEDS ORDERED: AZITHROMYCIN INJ 500 MG in SODIUM CHLOR 0.9% 250 ML INJ 250 ML IV ONE (19:45)
[2018-01-20] MEDS ORDERED: cefTRIAXone INJ 1,000 MG in SODIUM CHLORIDE 0.9% INJ 100 ML IV ONE (19:45)
--- NOTE | 2018-01-20 19:55 | HHI.HP ---
[facility] No Primary Care Physician Admission Diagnosis PNA with hypoxia Diagnoses: (1) PNA (pneumonia) Diagnosis: Principal (2) Hypoxia Diagnosis: Principal (3) Thrombocytopenia Diagnosis: Principal Travel History International Travel<30 Days: No Contact w/Intl Traveler <30 Da: No Traveled to Known Affected Are: No History of Present Illness This is an 87-year-old male with a PMH of HTN and h/o CVA with Left Sided Weakness who was brought to the ER by secondary to episodes of "shaking". Per , pt had acute onset of shaking episodes similar to rigors. Pt reports productive cough w/ yellow colored sputum for the last 2-3 days. Denies SOB, not on home O2. No fever, chest pain or sick contacts. On arrival, BP 159/74, HR 90, O2 sat 94% on 2L NC, Afebrile. While in ER, patient noted to have episodes of hypoxia with O2 sat 90% on RA. WBC normal, elevated neutrophil count. Platelets 54, previously 72 on 08/31/17. Chemistry unremarkable. INR 1.2. UA negative. CXR with parenchymal changes. CT Head negative. CTA Pulm negative for PE, scattered parenchymal infiltrates bilaterally. S/p Rocephin/ Zithro in ER. Review of Systems Except as stated in HPI: all other systems reviewed are Neg ROS: 14 point review of systems otherwise negative. Past Family Social History Past Medical History PMH: HTN and h/o CVA with Left Sided Weakness Past Surgical History PAST SURGICAL HISTORY: Hernia Repair, Appendectomy Allergies: Coded Allergies: aspirin (Unverified Allergy, Severe, ANAPYLACTIC, 01/20/18) Family History PAST FAMILY HISTORY: Reviewed. No h/o DM or CAD Social History PAST SOCIAL HISTORY: Negative for alcohol, tobacco or drugs. Physical Exam Vital Signs Vital Signs Date Time Temp Pulse Resp B/P (MAP) Pulse Ox O2 Delivery O2 Flow Rate FiO2 01/20/18 13:59 98.2 90 20 159/74 (102) 94 Physical Exam PE: GENERAL: Pleasant elderly white male in no acute distress. at bedside. HEENT: PERRLA, EOMI. No scleral icterus or conjunctival pallor. No lid lag or facial droop. CARDIOVASCULAR: Regular rate and rhythm. No obvious murmurs to auscultation. No chest tenderness to palpation. RESPIRATORY: No obvious rhonchi or wheezing. Clear to auscultation. Breath sounds equal bilaterally. GASTROINTESTINAL: Abdomen soft, non-tender, nondistended. BS normal. MUSCULOSKELETAL: Extremities without clubbing, cyanosis, or edema. No obvious deformities. NEUROLOGICAL: Awake, alert and oriented to person/place. No focal neurologic deficits. Moving both upper and lower extremities spontaneously. Laboratory Laboratory Tests Test 01/20/18 15:41 01/20/18 17:35 White Blood Count 9.0 Red Blood Count 4.42 Hemoglobin 12.2 Hematocrit 37.2 Mean Corpuscular Volume 84.2 Mean Corpuscular Hemoglobin 27.7 Mean Corpuscular Hemoglobin Concent 32.9 Red Cell Distribution Width 17.7 Platelet Count 54 Mean Platelet Volume 7.7 Neutrophils (%) (Auto) 89.0 Lymphocytes (%) (Auto) 4.0 Monocytes (%) (Auto) 5.9 Eosinophils (%) (Auto) 0.8 Basophils (%) (Auto) 0.3 Neutrophils # (Auto) 8.1 Lymphocytes # (Auto) 0.4 Monocytes # (Auto) 0.5 Eosinophils # (Auto) 0.1 Basophils # (Auto) 0.0 CBC Comment AUTO DIFF Differential Comment AUTO DIFF CONFIRMED Platelet Estimate LOW Platelet Morphology Comment NORMAL Ovalocytes 1+ Prothrombin Time 12.6 Prothromb Time International Ratio 1.2 Activated Partial Thromboplast Time 26.9 Blood Urea Nitrogen 13 Creatinine 0.80 Random Glucose 105 Total Protein 6.8 Albumin 3.0 Calcium Level 9.0 Alkaline Phosphatase 83 Aspartate Amino Transf (AST/SGOT) 33 Alanine Aminotransferase (ALT/SGPT) 32 Total Bilirubin 1.8 Sodium Level 140 Potassium Level 4.2 Chloride Level 106 Carbon Dioxide Level 27.2 Anion Gap 7 Estimat Glomerular Filtration Rate 92 Total Creatine Kinase 76 Troponin I LESS THAN 0.02 Urine Color YELLOW Urine Turbidity CLEAR Urine pH 8.0 Urine Specific [place] 1.016 Urine Protein NEG Urine Glucose (UA) NEG Urine Ketones NEG Urine Occult Blood TRACE Urine Nitrite NEG Urine Bilirubin NEG Urine Urobilinogen 2.0 Urine Leukocyte Esterase NEG Urine RBC 7 Urine Mucus FEW Microscopic Urinalysis Comment CATH-CULT NOT IND Result Diagram: 01/20/18 1541 01/20/18 1541 Caprini VTE Risk Assessment Caprini VTE Risk Assessment: No/Low Risk (score <= 1) Caprini Risk Assessment Model Point Value = 1 Point Value = 2 Point Value = 3 Point Value = 5 Age 41-60 Minor surgery BMI > 25 kg/m2 Swollen legs Varicose veins or History of unexplained or recurrent spontaneous Oral contraceptives or hormone replacement Sepsis (< 1 month) Serious lung disease, including pneumonia (< 1 month) Abnormal pulmonary function Acute myocardial infarction Congestive heart failure (< 1 month) History of inflammatory bowel disease Medical patient at bed rest Age 61-74 Arthroscopic surgery Major open surgery (> 45 min) Laparoscopic surgery (> 45 min) Malignancy Confined to bed (> 72 hours) Immobilizing plaster cast Central venous access Age >= 75 History of VTE Family history of VTE Factor V Leiden Prothrombin [id number] Lupus anticoagulant Anticardiolipin antibodies Elevated serum homocysteine Heparin-induced thrombocytopenia Other congenital or acquired thrombophilia Stroke (< 1 month) Elective arthroplasty Hip, pelvis, or leg fracture Acute spinal cord injury (< 1 month) Prophylaxis Regimen Total Risk Factor Score Risk Level Prophylaxis Regimen 0-1 Low Early ambulation 2 Moderate Order ONE of the following: *Sequential Compression Device (SCD) *Heparin 5000 units SQ BID 3-4 Higher Order ONE of the following medications: *Heparin 5000 units SQ TID *Enoxaparin/Lovenox 40 mg SQ daily (WT < 150 kg, CrCl > 30 mL/min) *Enoxaparin/Lovenox 30 mg SQ daily (WT < 150 kg, CrCl > 10-29 mL/min) *Enoxaparin/Lovenox 30 mg SQ BID (WT < 150 kg, CrCl > 30 mL/min) AND/OR *Sequential Compression Device (SCD) 5 or more Highest Order ONE of the following medications: *Heparin 5000 units SQ TID (Preferred with Epidurals) *Enoxaparin/Lovenox 40 mg SQ daily (WT < 150 kg, CrCl > 30 mL/min) *Enoxaparin/Lovenox 30 mg SQ daily (WT < 150 kg, CrCl > 10-29 mL/min) *Enoxaparin/Lovenox 30 mg SQ BID (WT < 150 kg, CrCl > 30 mL/min) AND *Sequential Compression Device (SCD) Assessment and Plan Problem List: (1) PNA (pneumonia) ICD Code: J18.9 - Pneumonia, unspecified organism (2) Hypoxia ICD Code: R09.02 - Hypoxemia Status: Acute (3) Thrombocytopenia ICD Code: D69.6 - Thrombocytopenia, unspecified Status: Chronic Assessment and Plan A/P: 1. PNA: c/o productive cough, +rigors today. CXR w/ parenchymal infiltrates, CTA Pulm w/ scattered infiltrates bilaterally, images reviewed by me. Afebrile , no leukocytosis. S/p Rocephin/Zithro, will continue w/ IV Abx. Check Sputum Cultures. 2. Hypoxia: O2 sat 90% on RA while in ER, not on Home O2, currently O2 sat 94 % on 2L NC. Monitor O2, NC as needed. DuoNeb/Symbicort, check ambulating O2 prior to discharge to [facility] for Home O2 needs. 3. Thrombocytopenia: Acute on Chronic. Platelets 54, previously 72 on . No active bleeding at this time. Will repeat labs in a.m. 4. DVT Prophylaxis: SCD/teds. 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 6. Case discussed at length with ER physician, lab/records/imaging reviewed by me. Lauren Malhotra MD Jan 20, 2018 19:55
[2018-01-20] MEDS: RESP: ALBUTEROL 2.5 MG/IPRATROPIUM 0.5 MG NEB (SCH) INH (19:56)
[2018-01-20 20:00] VITALS: O2SAT 96
[2018-01-20] MEDS ORDERED: LACTULOSE SYRUP 20 GM/30 ML CUP PO PRN (20:00)
[2018-01-20] MEDS ORDERED: BISACODYL 10 MG SUPP RECTAL PRN (20:00)
[2018-01-20] MEDS ORDERED: ONDANSETRON HCL 4 MG/2 ML VIAL IVP PRN (20:00)
[2018-01-20] MEDS ORDERED: ACETAMINOPHEN 325 MG TAB PO PRN (20:00)
[2018-01-20] MEDS ORDERED: SODIUM CHLORIDE 0.9% FLUSH 10 ML FLUSH IV FLUSH PRN (20:00)
[2018-01-20] MEDS ORDERED: SENNOSIDES 8.6 MG TAB PO PRN (20:00)
[2018-01-20] MEDS ORDERED: RESP: ALBUTEROL 2.5 MG/IPRATROPIUM 0.5 MG NEB (PRN) NEB (20:00)
[2018-01-20] MEDS ORDERED: MORPHINE SULFATE 2 MG/ML INJ IV PUSH PRN (20:00)
[2018-01-20] MEDS ORDERED: MAGNESIUM HYDROXIDE SUSP 30 ML CUP PO PRN (20:00)
[2018-01-20] MEDS ORDERED: ACETAMINOPHEN/HYDROcodone 325 MG/5 MG TAB PO PRN (20:00)
[2018-01-20 20:11] VITALS: BP 121/56; PULSE 108; O2SAT 96
[2018-01-20] MEDS: SODIUM CHLORIDE 0.9% FLUSH 10 ML FLUSH IV FLUSH SCH (20:14)
[2018-01-20] MEDS: DOCUSATE SODIUM 50 MG/SENNA 8.6 MG TAB PO SCH (20:30)
[2018-01-20] MEDS: BUDESONIDE-FORMOTEROL 80/4.5 MCG INHALER INH SCH (21:00)
[2018-01-20 21:22] VITALS: BP 103/55; PULSE 95; RESP 17; TEMP 97.9; O2SAT 97
[2018-01-20 23:53] VITALS: BP 108/56; PULSE 92; RESP 17; TEMP 98.4; O2SAT 97
[2018-01-21 04:35] VITALS: BP 99/55; PULSE 64; RESP 18; TEMP 98.7; O2SAT 96
[2018-01-21] MEDS: DOCUSATE SODIUM 50 MG/SENNA 8.6 MG TAB PO SCH (09:07)
[2018-01-21] MEDS: SODIUM CHLORIDE 0.9% FLUSH 10 ML FLUSH IV FLUSH SCH (09:07)
[2018-01-21 09:11] LABS: AUTOMATED NEUTROPHIL # 4.3 TH/MM3 (1.8-7.7); BASOPHIL % 0.5 % (0.0-2.0); EOSINOPHIL # 0.1 TH/MM3 (0-0.4); EOSINOPHIL % 2.6 % (0.0-4.0); HEMATOCRIT 32.9 % (39.0-51.0); HEMOGLOBIN 10.8 GM/DL (13.0-17.0); LYMPH % 16.4 % (9.0-44.0); MEAN CORPUSCULAR HEMOGLOBIN 27.9 PG (27.0-34.0); MEAN CORPUSCULAR HGB CONC 32.8 % (32.0-36.0); MEAN PLATELET VOLUME 8.2 FL (7.0-11.0); MONO % 7.2 % (0.0-8.0); MONOCYTE # 0.4 TH/MM3 (0-0.9); NEUT % 73.3 % (16.0-70.0); PLATELET COUNT 46 TH/MM3 (150-450); RED BLOOD COUNT 3.86 MIL/MM3 (4.50-5.90); RED CELL DISTRIBUTION WIDTH 17.5 % (11.6-17.2); WHITE BLOOD COUNT 5.8 TH/MM3 (4.0-11.0)
--- NOTE | 2018-01-21 09:23 | HHI.PR ---
Subjective Remarks Follow-up visit community-acquired pneumonia, underlying asthma, HTN, CVA with left-sided weakness. Patient seen and examined today sitting in the chair eating his breakfast. at the bedside. Patient states he is doing better. Reports occasional shortness of breath without worse today compared to prior. Reports occasional cough. does not use any oxygen at home but reports history of asthma. Patient and requesting to go home today. Discussed with patient and if he significantly improves throughout the day we will plan to DC home today. Will order walk test and physical therapy. Denies chest pain , palpitations, dizziness. Denies fevers reports occasional chills. Denies any abdominal pain, nausea, vomiting, diarrhea, dysuria. Objective Vitals Vital Signs Date Time Temp Pulse Resp B/P (MAP) Pulse Ox O2 Delivery O2 Flow Rate FiO2 01/21/18 04:35 98.7 64 18 99/55 (70) 96 01/20/18 23:53 98.4 92 17 108/56 (73) 97 01/20/18 22:01 16 01/20/18 21:22 97.9 95 17 103/55 (71) 97 01/20/18 20:21 96 Nasal Cannula 2.00 01/20/18 20:11 108 121/56 (77) 96 Nasal Cannula 2.00 01/20/18 20:00 96 Nasal Cannula 2.00 01/20/18 13:59 98.2 90 20 159/74 (102) 94 I/O 01/20/18 01/20/18 01/20/18 01/21/18 01/21/18 01/21/18 07:00 15:00 23:00 07:00 15:00 23:00 Intake Total 850 ml Balance 850 ml Intake IV Total 850 ml Result Diagram: 01/21/18 0825 01/20/18 1541 Imaging Last Impressions Head CT 01/20/18 1510 Signed Impressions: Service Date/Time: Saturday, January 20, 2018 16:02 - CONCLUSION: Negative for acute process. Jeramy Romo MD FACR Chest X-Ray 01/20/18 1510 Signed Impressions: Service Date/Time: Saturday, January 20, 2018 15:24 - CONCLUSION: Parenchymal changes on the left as above Jeramy Romo MD FACR CT Angiography 3/3/18 0000 Signed Impressions: Service Date/Time: Saturday, January 20, 2018 18:58 - CONCLUSION: 1. No evidence for pulmonary embolus. 2. Cirrhosis and portal hypertension. 3. Atherosclerosis. 4. Scattered parenchymal infiltrates as well as scattered lung nodules. Three-month followup CT chest recommended. Prosper Garcia MD Objective Remarks GENERAL: This is a well-nourished, well-developed patient, in no apparent distress. SKIN: Warm and dry HEENT: Normocephalic. Pupils equal round and reactive. Nose without bleeding. Airway patent. NECK: Trachea midline. CARDIOVASCULAR: Regular rate and rhythm without murmurs, gallops, or rubs. RESPIRATORY: Diminished BS. No wheezes, rales, or rhonchi. Cough (+) GASTROINTESTINAL: Abdomen soft, non-tender, nondistended. Bowel Sounds normoactive x4. MUSCULOSKELETAL: Extremities without clubbing, cyanosis, or edema. NEUROLOGICAL: Awake and alert. Oriented to time, place, person. No focal neuro deficit. Moves all extremities. Normal speech. A/P Problem List: (1) PNA (pneumonia) ICD Code: J18.9 - Pneumonia, unspecified organism (2) Hypoxia ICD Code: R09.02 - Hypoxemia Status: Acute (3) Thrombocytopenia ICD Code: D69.6 - Thrombocytopenia, unspecified Status: Chronic Assessment and Plan 87-year-old male with a PMH of HTN and h/o CVA with Left Sided Weakness who was brought to the ER by secondary to episodes of "shaking". Pneumonia, community-acquired -Productive cough and rigors initially. Improving -Chest x-ray showed parenchymal changes of the left -CT Angio showed no evidence of pulmonary embolus.2. Cirrhosis and portal hypertension.3. Atherosclerosis.4. Scattered parenchymal infiltrates as well as scattered lung nodules -Follow-up sputum culture. -Continue Rocephin IV, azithromycin IV. Will switch over to p.o. antibiotics if condition improves throughout the day. -Duo nebs as ordered. Symbicort every 12 hours. Add Mucinex -Follow up outpatient for repeat xray lung Nodules HypoxiA Underlying Asthma, COPD -Possibly secondary to pna -No O2 today was seen and examined. -Walk test Thrombocytopenia: Acute on Chronic. -Platelets 54, previously 72 on 08/31/17. -No active bleeding at this time. 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
[2018-01-21] MEDS: BUDESONIDE-FORMOTEROL 80/4.5 MCG INHALER INH SCH (09:41)
[2018-01-21 09:58] LABS: OVALOCYTES 2+ (NORMAL)
--- NOTE | 2018-01-21 10:02 | HHI.FF ---
Face to Face Verification Diagnosis: (1) PNA (pneumonia) (2) Physical deconditioning Physical Therapy Order: Evaluate and Treat, Strength and gait training Home Health Nursing Order: Nursing assessment with vital signs I have seen patient Buzz Álvarez on 01/21/18. My clinical findings support the need for the requested home health care services because: Ltd mobility - disease progression Deconditioned w/ increased weakness I certify that my clinical findings support that this patient is homebound because: Hx COPD- exertion dyspnea/weakness Unsteady gait/balance Mana Ashby Jan 21, 2018 10:02
[2018-01-21 10:05] LABS: ALBUMIN 2.5 GM/DL (3.4-5.0); AST (GOT) 32 U/L (15-37); BICARBONATE 27.3 MEQ/L (21.0-32.0); BLOOD UREA NITROGEN 15 MG/DL (7-18); CALCIUM 8.4 MG/DL (8.5-10.1); CHLORIDE 109 MEQ/L (98-107); CREATININE 0.83 MG/DL (0.60-1.30); GLOMERULAR FILTRATION RATE 88 ML/MIN (>89); GLUCOSE,RANDOM 82 MG/DL (74-106); SODIUM (NA) 141 MEQ/L (136-145)
[2018-01-21 10:11] LABS: ALKALINE PHOSPHATASE 69 U/L (45-117); ALT (GPT) 27 U/L (12-78); TOTAL BILIRUBIN ADULT 1.4 MG/DL (0.2-1.0); TOTAL PROTEIN 5.9 GM/DL (6.4-8.2)
[2018-01-21 12:25] VITALS: BP 130/60; PULSE 67; RESP 20; TEMP 98.2; O2SAT 96
[2018-01-21] MEDS ORDERED: RESP: ALBUTEROL 2.5 MG/IPRATROPIUM 0.5 MG NEB (SCH) NEB (14:00)
--- NOTE | 2018-01-21 14:49 | HHI.DS ---
Discharge Summary Admission Date Jan 20, 2018 at 7:52 pm Discharge Date: Jan 21, 2018 Admitting Diagnosis PNA with hypoxia (1) PNA (pneumonia) ICD Code: J18.9 - Pneumonia, unspecified organism (2) Hypoxia ICD Code: R09.02 - Hypoxemia Status: Acute (3) Thrombocytopenia ICD Code: D69.6 - Thrombocytopenia, unspecified Status: Chronic Procedures None Brief History - From Admission This is an 87-year-old male with a PMH of HTN and h/o CVA with Left Sided Weakness who was brought to the ER by secondary to episodes of "shaking". Per , pt had acute onset of shaking episodes similar to rigors. Pt reports productive cough w/ yellow colored sputum for the last 2-3 days. Denies SOB, not on home O2. No fever, chest pain or sick contacts. On arrival, BP 159/74, HR 90, O2 sat 94% on 2L NC, Afebrile. While in ER, patient noted to have episodes of hypoxia with O2 sat 90% on RA. WBC normal, elevated neutrophil count. Platelets 54, previously 72 on 08/31/17. Chemistry unremarkable. INR 1.2. UA negative. CXR with parenchymal changes. CT Head negative. CTA Pulm negative for PE, scattered parenchymal infiltrates bilaterally. S/p Rocephin/ Zithro in ER. CBC/BMP: 01/21/18 0825 01/21/18 0825 Significant Findings Laboratory Tests Test 01/20/18 15:41 01/20/18 17:35 01/21/18 08:25 Red Blood Count 4.42 MIL/MM3 (4.50-5.90) 3.86 MIL/MM3 (4.50-5.90) Hemoglobin 12.2 GM/DL (13.0-17.0) 10.8 GM/DL (13.0-17.0) Hematocrit 37.2 % (39.0-51.0) 32.9 % (39.0-51.0) Red Cell Distribution Width 17.7 % (11.6-17.2) 17.5 % (11.6-17.2) Platelet Count 54 TH/MM3 (150-450) 46 TH/MM3 (150-450) Neutrophils (%) (Auto) 89.0 % (16.0-70.0) 73.3 % (16.0-70.0) Lymphocytes (%) (Auto) 4.0 % (9.0-44.0) Neutrophils # (Auto) 8.1 TH/MM3 (1.8-7.7) Lymphocytes # (Auto) 0.4 TH/MM3 (1.0-4.8) Platelet Estimate LOW (NORMAL) LOW (NORMAL) Ovalocytes 1+ (NORMAL) 2+ (NORMAL) Prothrombin Time 12.6 SEC (9.8-11.6) Albumin 3.0 GM/DL (3.4-5.0) 2.5 GM/DL (3.4-5.0) Total Bilirubin 1.8 MG/DL (0.2-1.0) 1.4 MG/DL (0.2-1.0) Troponin I LESS THAN 0.02 NG/ML Urine Occult Blood TRACE (NEG) Urine RBC 7 /hpf (0-3) Urine Mucus FEW /lpf (OCC) Total Protein 5.9 GM/DL (6.4-8.2) Calcium Level 8.4 MG/DL (8.5-10.1) Chloride Level 109 MEQ/L (98-107) Estimat Glomerular Filtration Rate 88 ML/MIN (>89) Imaging Last Impressions Head CT 01/20/18 1510 Signed Impressions: Service Date/Time: Saturday, January 20, 2018 16:02 - CONCLUSION: Negative for acute process. Jeramy Romo MD FACR Chest X-Ray 01/20/18 1510 Signed Impressions: Service Date/Time: Saturday, January 20, 2018 15:24 - CONCLUSION: Parenchymal changes on the left as above Jeramy Romo MD FACR CT Angiography 01/20/18 0000 Signed Impressions: Service Date/Time: Saturday, January 20, 2018 18:58 - CONCLUSION: 1. No evidence for pulmonary embolus. 2. Cirrhosis and portal hypertension. 3. Atherosclerosis. 4. Scattered parenchymal infiltrates as well as scattered lung nodules. Three-month followup CT chest recommended. Prosper Garcia MD PE at Discharge GENERAL: This is a well-nourished, well-developed patient, in no apparent distress. SKIN: Warm and dry HEENT: Normocephalic. Pupils equal round and reactive. Nose without bleeding. Airway patent. NECK: Trachea midline. CARDIOVASCULAR: Regular rate and rhythm without murmurs, gallops, or rubs. RESPIRATORY: Diminished BS. No wheezes, rales, or rhonchi. Cough (+) GASTROINTESTINAL: Abdomen soft, non-tender, nondistended. Bowel Sounds normoactive x4. MUSCULOSKELETAL: Extremities without clubbing, cyanosis, or edema. NEUROLOGICAL: Awake and alert. Oriented to time, place, person. No focal neuro deficit. Moves all extremities. Normal speech. Pt update on day of discharge Follow-up visit community-acquired pneumonia, underlying asthma, HTN, CVA with left-sided weakness. Patient seen and examined today sitting in the chair eating his breakfast. at the bedside. Patient states he is doing better. Reports occasional shortness of breath without worse today compared to prior. Reports occasional cough. does not use any oxygen at home but reports history of asthma. Patient and requesting to go home today. Discussed with patient and if he significantly improves throughout the day we will plan to DC home today. Will order walk test and physical therapy. Denies chest pain , palpitations, dizziness. Denies fevers reports occasional chills. Denies any abdominal pain, nausea, vomiting, diarrhea, dysuria. Walk Test done and O2 sat remained at 94%. Requesting to go home. Hospital Course 87-year-old male with a PMH of HTN and h/o CVA with Left Sided Weakness who was brought to the ER by secondary to episodes of "shaking". Chest x-ray showed parenchymal changes on the left. CT Angio showed no evidence of pulmonary embolus.2. Cirrhosis and portal hypertension.3. Atherosclerosis.4. Scattered parenchymal infiltrates as well as scattered lung nodules. Complains of productive cough and rigors initially but now has improved since patient has gotten Rocephin, azithromycin IV. He is diagnosed with community-acquired pneumonia. He has underlying asthma and he needs to continue his home medications Symbicort and DuoNeb's as ordered. He will take Mucinex at home. He felt that he has significantly improved. Walk test has been done and has maintained his O2 sat at 94% on room air. Patient has chronic thrombocytopenia. He will need to follow up with his PCP and golf course assistant for further outpatient management. Patient and requesting to go home and believes that the patient will do better at home. He has significantly improved and feels that he is able to manage himself at home with . Plan to send the patient home with home health care. Follow up CXR in 2 weeks with PCP Pt Condition on Discharge: Stable Discharge Disposition: Disch w/ Home Health Serv Discharge Time: <= 30 minutes Discharge Instructions DIET: Follow Instructions for: Heart Healthy Diet Activities you can perform: Regular-No Restrictions, Weight Bearing as Erendira Follow up Referrals: PCP Follow-up - 1 Week Lung Nodules noted on CT Angio, will need follow up CT chest in 3months New Medications: Azithromycin (Azithromycin) 250 Mg Tab 250 MG PO DAILY for Infection for 4 Days, #4 TAB 0 Refills Cefuroxime (Ceftin) 250 Mg Tab 250 MG PO BID for Infection for 10 Days, #20 TAB Dextromethorphan-Guaifenesin (Mucinex DM) 30-600 Mg Tab 1 TAB PO BID PRN for CHEST CONGESTION AND/OR COUGH for 10 Days, #20 TAB 0 Refills Furosemide (Furosemide) 20 Mg Tab 20 MG PO DAILY for Blood Pressure Management for 30 Days, #30 TAB 0 Refills Continued Medications: Budesonide-Formoterol Inh (Symbicort Inh) 80-4.5 Mcg/Act Aero 2 PUFF INH Q12HR for Asthma Management, #1 INHALER 0 Refills Verapamil (Verapamil) 120 Mg Tab 180 MG PO BID, #60 TAB 0 Refills Discontinued Medications: Furosemide (Furosemide) 40 Mg Tab 40 MG PO DAILY, #30 TAB 0 Refills Mana Ashby Jan 21, 2018 14:49
--- NOTE | 2018-01-21 14:50 | HHI.DCPOC ---
Discharge Care Plan Diagnosis: (1) Physical deconditioning (2) PNA (pneumonia) Your Health Problems Are: Difficulty with ADL Cough Shortness of Breath Goals to Promote Your Health * To prevent worsening of your condition and complications * To maintain your health at the optimal level Directions to Meet Your Goals Take your medications as prescribed Follow your dietary instruction Follow activity as directed Keep your appointments as scheduled Take your immunizations and boosters as scheduled If your symptoms worsen call your PCP, if no PCP go to Urgent Care Center or Emergency Room Smoking is Dangerous to Your Health. Avoid second hand smoke Call the 24-hour hour crisis hotline for domestic abuse at Mana Ashby Jan 21, 2018 2:50 pm
[2018-01-21] MEDS ORDERED: AZIT250T3 PO (15:01)
[2018-01-21] MEDS ORDERED: CEFU1TAB18 PO (15:01)
[2018-01-21] MEDS ORDERED: FURO20TA PO (15:01)
[2018-01-21] MEDS ORDERED: HUMIBIDDM PO (15:01)
[2018-01-21] MEDS ORDERED: cefTRIAXone INJ 1,000 MG in SODIUM CHLORIDE 0.9% INJ 100 ML IV SCH (21:00)
[2018-01-21] MEDS ORDERED: AZITHROMYCIN INJ 500 MG in SODIUM CHLOR 0.9% 250 ML INJ 250 ML IV SCH (21:00)
== END 2018-01-21 15:40 | disposition home or self-care (01) ==
LOC: NEPC 13:52 → NEDA 19:52 → NEPFCDU 21:04
PROVIDERS: ADMIT Hospitalist; ATTEND Hospitalist
DX: J44.0 Chronic obstructive pulmonary disease with (acute) lower respiratory infection (principal); J18.1 Lobar pneumonia, unspecified organism; R09.02 Hypoxemia; D69.6 Thrombocytopenia, unspecified; I10 Essential (primary) hypertension; K74.60 Unspecified cirrhosis of liver; K76.6 Portal hypertension; B19.20 Unspecified viral hepatitis C without hepatic coma; D64.9 Anemia, unspecified; I69.354 Hemiplegia and hemiparesis following cerebral infarction affecting left non-dominant side
CPT/HCPCS: 70450; 71045; 71275; 76937; 80053; 81001; 82550; 84484; 85025; 85610; 85730; 86403; 87070; 87186; 87205; 94618; 94640; 94664; 96365; 96375; 97162; 99285; G0378; G8987; G8988; J0456; J0696; J7040; J7050; Q9967

== ENCOUNTER 2018-08-15 09:36 | Inpatient (IN) ==
[2018-08-15] MEDS ORDERED: Dicyclomine 10 MG Capsule PO ONE (10:17)
[2018-08-15 10:49] LABS: Baso # (Auto) 0.1 th/mm3 (0.0-0.2); Baso % (Auto) 1.4 % (0.0-2.0); Eos # (Auto) 0.3 th/mm3 (0.0-0.4); Eos % (Auto) 6.5 % (0.0-4.0); Hematocrit 38.3 % (39.0-51.0); Hemoglobin 12.7 gm/dL (13.0-17.0); Lymph % (Auto) 23.9 % (9.0-44.0); Mean Corpuscular HGB Conc 33.1 % (32.0-36.0); Mean Corpuscular Hemoglobin 31.3 pg (27.0-34.0); Mean Corpuscular Volume 94.5 fL (80.0-100.0); Mean Platelet Volume 7.2 fL (7.0-11.0); Mono # (Auto) 0.4 th/mm3 (0.0-0.9); Mono % (Auto) 10.2 % (0.0-8.0); Neut # (Auto) 2.3 th/mm3 (1.8-7.7); Platelet Count 59 th/mm3 (150-450); Red Blood Count 4.06 mil/mm3 (4.50-5.90); Red Cell Distribution Width 19.3 % (11.6-17.2); White Blood Count 4.1 th/mm3 (4.0-11.0)
[2018-08-15 11:04] LABS: Alanine Aminotransferase 23 U/L (12-78); Albumin 2.4 g/dL (3.4-5.0); Anion Gap 7 meq/L (5-15); Aspartate Aminotransferase 29 U/L (15-37); Blood Urea Nitrogen 13 mg/dL (7-18); Calcium 7.8 mg/dL (8.5-10.1); Carbon Dioxide 25.9 meq/L (21.0-32.0); Chloride 109 meq/L (98-107); Glomerular Filtration Rate Greater Than 89 mL/min (>89); Glucose,Random 101 mg/dL (74-106); Lipase 124 U/L (73-393); Potassium 3.6 meq/L (3.5-5.1); Sodium 142 meq/L (136-145)
[2018-08-15 11:07] LABS: Alkaline Phosphatase 113 U/L (45-117); Total Protein 6.4 g/dL (6.4-8.2)
--- NOTE | 2018-08-15 11:13 | XR ---
EXAM DATE: 08/15/2018 10:17 AM EDT AGE/SEX: 87 years / Male INDICATIONS: . Short of breath with left upper abdomen pains. CLINICAL DATA: This is the patient's initial encounter. Patient reports that signs and symptoms have been present for 1 day and indicates a pain score of 8/10. MEDICAL/SURGICAL HISTORY: Stroke. Hernia . Hernia COMPARISON: [facility], CHEST SINGLE AP, 01/20/2018. . FINDINGS: Mild airspace disease in the left lower lung zone with very small left pleural effusion. There is als o trace fluid in the major fissures. Cardiomegaly mediastinal contours are within normal limits. Bony thorax is intact. CONCLUSION: 1. Mild left lower lobe airspace disease with trace left pleural effusion. Electronically signed by: Chase Espino MD 08/15/2018 11:11 AM EDT
[2018-08-15] MEDS ORDERED: Azithromycin Inj 500 MG in Sodium Chlor 0.9% Inj 250 ML IV.SIG ONE (11:20)
--- NOTE | 2018-08-15 12:02 | ED ---
HPI General Chief Complaint: Abdominal Pain Stated Complaint: Flank Pain Time Seen by Provider: 08/15/18 10:08 Source: patient and other Limitations: no limitations History of Present Illness HPI narrative: Patient is an 87-year-old male, past medical history significant for cirrhosis secondary to hepatitis C, hypertension, asthma, who presents with complaint of left upper quadrant abdominal pain for the last several hours to days. His caregiver states that he fell several weeks ago and sustained left- sided rib fracture after which she has had pain. He fell again 4 days ago and has had worsening pain since then. The fall was caused by tripping and he did not hit his head nor lose consciousness. He also describes malaise but no fever nor chills. The pain does worsen with movement. No diarrhea nor constipation. No nausea nor vomiting. No chest pain. No he has had some shortness of breath which he states is relatively chronic and unchanged. MD complaint: abdominal pain Onset (ago): day(s) Pain Consistency: constant Location: [facility]Q Severity: moderate Quality: aching Radiation: none Migration to: no migration Relieving factors: nothing Exacerbating factors: movement Related Data Home Medications Medication Instructions Recorded Confirmed budesonide-formoterol [Symbicort] 2 puff INHALATION BID 08/15/18 08/15/18 ciprofloxacin HCl [Cipro] 500 mg PO DAILY 08/15/18 08/15/18 escitalopram oxalate 10 mg PO DAILY 08/15/18 08/15/18 furosemide [Lasix] 20 mg PO PRN 08/15/18 08/15/18 verapamil 180 mg PO DAILY 08/15/18 08/15/18 Allergies Allergy/AdvReac Type Severity Reaction Status Date / Time aspirin Allergy Severe ANAPYLACTIC Verified 08/15/18 10:22 Review of Systems ROS: all other systems reviewed are negative [facility] Medical History Medical History Asthma (Acute) HTN (hypertension) (Acute) Hepatitis C virus (Acute) Liver cirrhosis (Acute) Surgical History Surgical History Hx of appendectomy (Acute) Hx of hernia repair (Acute) Social History Social History Substance History: No History of Abuse Second Hand Smoke Exposure: No Smoking Status: Never smoker How Often Do You Have a Drink Containing Alcohol: Monthly or less Recent Travel in [facility] within the Last 8 Weeks: No Recent Out of Country Travel within the Last 8 Weeks: No Immunization History Tetanus Immunization: Unsure Hx Influenza Vaccine This Season: Yes Exam Narrative Exam Narrative: GENERAL: Well-appearing, elderly male in no acute distress SKIN: Focused skin assessment warm/dry. HEAD: Atraumatic. Normocephalic. EYES: Pupils equal and round. No scleral icterus. No injection or drainage. ENT: No nasal bleeding or discharge. Mucous membranes pink and moist. NECK: Trachea midline. No JVD. CARDIOVASCULAR: Regular rate and rhythm. No murmur appreciated. RESPIRATORY: No accessory muscle use. Clear to auscultation. Breath sounds equal bilaterally. GASTROINTESTINAL: Abdomen soft, nondistended. Tenderness in the left upper quadrant. Hepatic and splenic margins not palpable. MUSCULOSKELETAL: No obvious deformities. No clubbing. No cyanosis. No edema. NEUROLOGICAL: Awake and alert. No obvious cranial nerve deficits. Motor grossly within normal limits. Normal speech. PSYCHIATRIC: Appropriate mood and affect; insight and judgment normal. Course Initial Documented Vital Signs Temperature 97.9 F 08/15/18 09:46 Pulse Rate 95 H 08/15/18 09:46 Respiratory Rate 18 08/15/18 09:46 Blood Pressure 123/81 08/15/18 09:46 Pulse Oximetry 94 L 08/15/18 09:46 Last Documented Vital Signs Temperature 97.9 F 08/15/18 09:46 Pulse Rate 89 08/15/18 09:52 Respiratory Rate 19 08/15/18 09:52 Blood Pressure 133/86 08/15/18 09:52 Pulse Oximetry 95 08/15/18 10:31 Medical Decision Making [facility] Narrative Medical decision making narrative: Patient is a 87-year-old male, past medical history significant for hepatitis C and cirrhosis who presents with complaint of left-sided chest/left upper quadrant pain with frequent falls. He has been hemodynamically stable. Labs are relatively unremarkable. Chest x-ray does show concern of a left lower lobe infiltrate and he has been started on Rocephin and azithromycin. Blood cultures were drawn prior to this being given and the patient has not been admitted in the last [address] obtained also shows large effusions with ascites and what appears to be a new hepatocellular carcinoma. His port score is 146 giving him a 27-29% risk of mortality given his comorbidities and pneumonia. He has been accepted for admission by Dr. Street, hospitalist on-call, for further evaluation and management. Medical Screen Exam Complete: Yes Emergency Medical Condition: Yes Differential Diagnosis Differential Diagnosis: Differential diagnosis includes but is not limited to diverticulitis, volvulus, pneumonia, pneumothorax, rib fracture, splenic laceration. Medical Records Medical records reviewed: Yes I reviewed the patient's medical records. Lab Data Lab results reviewed: Yes I reviewed the patient's lab results. Result diagrams: 08/15/18 10:30 08/15/18 10:30 Lab Results 08/15/18 08/15/18 08/15/18 Range/Units 10:30 10:30 10:30 WBC 4.1 (4.0-11.0) th/mm3 RBC 4.06 L (4.50-5.90) mil/mm3 Hgb 12.7 L (13.0-17.0) gm/dL Hct 38.3 L (39.0-51.0) % MCV 94.5 (80.0-100.0) fL MCH 31.3 (27.0-34.0) pg MCHC 33.1 (32.0-36.0) % RDW 19.3 H (11.6-17.2) % Plt Count 59 L (150-450) th/mm3 MPV 7.2 (7.0-11.0) fL Prelim Diff (Auto) Slide review pending Neut % (Auto) 58.0 (16.0-70.0) % Lymph % (Auto) 23.9 (9.0-44.0) % [place] % (Auto) 10.2 H (0.0-8.0) % Eos % (Auto) 6.5 H (0.0-4.0) % Baso % (Auto) 1.4 (0.0-2.0) % Neut # (Auto) 2.3 (1.8-7.7) th/mm3 Lymph # (Auto) 1.0 (1.0-4.8) th/mm3 [place] # (Auto) 0.4 (0.0-0.9) th/mm3 Eos # (Auto) 0.3 (0.0-0.4) th/mm3 Baso # (Auto) 0.1 (0.0-0.2) th/mm3 WBC Differential . Diff Scan Auto diff confirmed Differential Comment . Platelet Estimate Low L (Normal) Platelet Morphology Normal (Normal) Ovalocytes 1+ H (None) Sodium 142 (136-145) meq/L Potassium 3.6 (3.5-5.1) meq/L Chloride 109 H (98-107) meq/L Carbon Dioxide 25.9 (21.0-32.0) meq/L Anion Gap 7 (5-15) meq/L BUN 13 (7-18) mg/dL Creatinine 0.76 (0.60-1.30) mg/dL Estimated GFR Greater than 89 (>89) mL/min Random Glucose 101 (74-106) mg/dL Calcium 7.8 L (8.5-10.1) mg/dL Total Bilirubin 2.1 H (0.2-1.0) mg/dL AST 29 (15-37) U/L ALT 23 (12-78) U/L Alkaline Phosphatase 113 (45-117) U/L Troponin I Less than 0.02 L (0.02-0.05) ng/mL Total Protein 6.4 (6.4-8.2) g/dL Albumin 2.4 L (3.4-5.0) g/dL Lipase 124 (73-393) U/L Imaging Data Attestation: I personally reviewed and interpreted this imaging study as follows : My impression: Left lower lobe infiltrate. Radiologist's impression: Abdomen/Pelvis CT 08/15/18 10:17 CONCLUSION: 1. No acute abnormality is identified to explain the left sided abdominal pain. There is a T11 compression fracture that was likely present on the prior study. 2. Cirrhotic liver with enhancing subcapsular mass in the right liver measuring 3.4 cm. This lesion is highly suspicious for hepatocellular carcinoma. Consider additional characterization with liver protocol MRI with and without contrast or consider gastroenterology consultation and possible biopsy. 3. In addition to the cirrhosis there are findings related to portal hypertension including moderate ascites and splenomegaly. These findings suggest portal hypertension. 4. Small bilateral pleural effusions, left larger than right, with fluid in the posterior mediastinum adjacent to the herniated fat and hiatal hernia. Chest X-Ray 08/15/18 10:17 CONCLUSION: 1. Mild left lower lobe airspace disease with trace left pleural effusion. ECG Data EKG Prior to Arrival: No Attestation: I personally reviewed and interpreted this ECG as follows: (Sinus rhythm at a rate of [address] or T wave changes. Right bundle branch block present.) Discharge Plan Discharge Disposition Patient Disposition: 30 Still Patient Discharge Condition Condition: Stable Discharge Details Diagnosis: Pneumonia, Cirrhosis of liver, Liver mass Physicians Team ED Provider: Analilia Connor Primary Care Provider: UNKNOWN, Attending Provider: Jose Alfredo Street Discharge Interventions Interventions: Vital Signs Last Done: 08/15/18 09:52 Status ED Status: Admitted Patient
[2018-08-15 12:16] LABS: Ovalocytes 1+; Platelet Morphology Normal (Normal)
--- NOTE | 2018-08-15 12:45 | CT ---
EXAM DATE: 08/15/2018 11:28 AM EDT AGE/SEX: 87 years / Male INDICATIONS: Fall three days ago left side pain CLINICAL DATA: This is the patient's initial encounter. Patient reports that signs and symptoms have been present for 3 days and indicates a pain score of 8/10. MEDICAL/SURGICAL HISTORY: Asthma. Hepatitis C. Cirrhosis. Hypertension Appendectomy. hernia repair ORAL CONTRAST: No oral contrast ingested. RADIATION DOSE: 11.67 CTDI (mGy) COMPARISON: [facility] [place], CT PULMONARY ANGIOGRAM, 01/20/2018. . TECHNIQUE: Multiple contiguous axial images were obtained through the abdomen and pelvis following b olus infusion of 90 ml Omnipaque 350 (iohexol) nonionic water-soluble contrast as a single exam dos e. No oral contrast ingested. Using automated exposure control and adjustment of the mA and/or kV ac cording to patient size, radiation dose was kept as low as reasonably achievable to obtain optimal di agnostic quality images. DICOM format image data is available electronically for review and comparis on. FINDINGS: Lower chest: There is trace right pleural fluid and small left pleural effusion. There is compressive atelectasis in the lower lobes. There is fluid within the posterior mediastinum adjacent to fat dylan iating within the posterior mediastinum. Hepatobiliary: The liver demonstrates a nodular contour characteristic of cirrhosis. There is an enha ncing subcapsular mass measuring approximately 3.4 x 2.8 cm. Portal vein is patent. There is a calcif ied stone in the gallbladder. No gallbladder wall thickening is appreciated. There is no bile duct di latation. Kidneys: No hydronephrosis, stone, or mass. Adrenal Glands: Within normal limits. Spleen: The spleen is enlarged measuring 15.8 cm in length. Pancreas: Within normal limits. Vascular: There is moderate to severe atherosclerotic disease with ectatic infrarenal aorta measuring up to 3 cm. Bowel/Mesentery: Hiatal hernia is present. Small bowel demonstrates no acute finding. There is no acu te colon abnormality identified. Moderate volume of free fluid is present within the abdomen and pelv is. There is no free air. Abdominal Wall: No hernia is visualized. Retroperitoneum: No lymphadenopathy. Bladder: There is trabeculation of the urinary bladder wall with small cellule versus diverticulum on the right. Reproductive: Within normal limits. Inguinal: No lymphadenopathy or hernia. Musculoskeletal: There is dextroscoliosis of the lumbar spine with multilevel degenerative disc disea se. T11 compression deformity is present. CONCLUSION: 1. No acute abnormality is identified to explain the left sided abdominal pain. There is a T11 compr ession fracture that was likely present on the prior study. 2. Cirrhotic liver with enhancing subcapsular mass in the right liver measuring 3.4 cm. This lesion is highly suspicious for hepatocellular carcinoma. Consider additional characterization with liver pr otocol MRI with and without contrast or consider gastroenterology consultation and possible biopsy. 3. In addition to the cirrhosis there are findings related to portal hypertension including moderate ascites and splenomegaly. These findings suggest portal hypertension. 4. Small bilateral pleural effusions, left larger than right, with fluid in the posterior mediastinu m adjacent to the herniated fat and hiatal hernia. Electronically signed by: Ismael Lim MD 08/15/2018 12:44 PM EDT
[2018-08-15] MEDS ORDERED: Bisacodyl 10 MG Supp RECTAL PRN (14:00)
[2018-08-15] MEDS ORDERED: Lidocaine 5% Patch T-DERMAL ONE (14:12)
--- NOTE | 2018-08-15 15:45 | P.HPIM ---
History of Present Illness Service: [facility] Hospitalist. Primary Care Physician: UNKNOWN History of Present Illness: This is an 87yo male who presented to the ED with his for left rib pain. Pt was a poor historian, therefore majority of the interview was obtained from the . Per the , the pt had a mechanical fall 4 days ago, and has been complaining of L sided pain since then. He has a history of a rib fracture about 8 months ago, and his believes the fall aggravated it. She states that over the four days, the pain has been increasing and started to radiate to his abdomen. She gave him two Tylenol last night for the pain with little relief , and has not tried anything else. The pt reports that palpating the area, moving or taking a deep breath increases his pain, which he describes as stabbing. He reports some relief since he received the Lidocaine patch in the emergency room. Pt is also currently being treated with Cipro for a UTI that was diagnosed outpatient. He has a followup appt with his PCP on August 22. He has been on antibiotics for 5 days. Per the , she has noticed a decrease in appetite over the past two weeks, but no change in weight. 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 Currently, pt denies any new numbness or weakness, nausea , vomiting, diarrhea, constipation, fevers, chills, cough or sick contacts. PMH: hepatitis C, treated with Harvoni by Dr. 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 This includes certification that hospital inpatient services are reasonable and necessary and in the case of services not specified as inpatient-only under 42 CFR 419.22(n), that they are appropriately provided as inpatient services in accordance to with the 2-midnight benchmark under 43 CFR 412.3(e) Estimated Total Length of Stay (Days): 3 Plans for Post Hospital Care: Not yet determined Review of Systems All other systems reviewed negative except as stated in HPI Constitutional: Reports weakness Comments: decreased appetite PMFSH - History History Provided By: Patient, Family Member - Medical History Medical History: Medical History (Last Updated 08/15/18 @ 21:[address] MD) Asthma Dementia HTN (hypertension) Hepatitis C virus Liver cirrhosis - Surgical History Surgical History: Surgical History (Last Reviewed 08/15/18 @ 16:[address] MD) Hx of appendectomy Hx of hernia repair - Family History Family History: Family History (Last Updated 08/15/18 @ 21:[address] MD) Other Family history reviewed with no changes - Social History I have reviewed the patient's Social History: Yes - Tobacco History Second Hand Smoke Exposure: No Tobacco Use In Past 30 Days: No Smoking Status: Never smoker - Alcohol History How Often Do You Have a Drink Containing Alcohol: Monthly or less - Substance Use History Substance History: No History of Abuse - Travel History Recent Travel in the [place] Within the Last 8 Weeks: No Recent Travel Out of the Country Within the Last 8 Weeks: No - Immunization History Tetanus Immunization: Unsure Hx Influenza Vaccine This Season: Yes Medications and Allergies Allergies Allergy/AdvReac Type Severity Reaction Status Date / Time aspirin Allergy Severe ANAPYLACTIC Verified 08/15/18 10:22 Home Medications Medication Instructions Recorded Confirmed Type budesonide-formoterol [Symbicort] 2 puff INHALATION BID 08/15/18 08/15/18 History ciprofloxacin HCl [Cipro] 500 mg PO DAILY 08/15/18 08/15/18 History escitalopram oxalate 10 mg PO DAILY 08/15/18 08/15/18 History furosemide [Lasix] 20 mg PO PRN 08/15/18 08/15/18 History verapamil 180 mg PO DAILY 08/15/18 08/15/18 History Active Medications: Active Medications Al Hydroxide/Mg Hydroxide (Milk Of Magnesia Liq) 30 ml PO Q12H PRN PRN Reason: Mild Constipation Bisacodyl (Dulcolax Supp) 10 mg RECTAL DAILY PRN PRN Reason: SEVERE CONSITIPATION Budesonide/Formoterol Fumarate (Symbicort 80/4.5 Mcg Inh) 2 puff INH BID BRONSON Escitalopram Oxalate (Lexapro) 10 mg PO DAILY [place] Lactulose (Lactulose Liq) 30 ml PO DAILY PRN PRN Reason: SEVERE CONSITIPATION Patch Removal (Remove Old Patch) 1 each T-DERMAL HS BRONSON Sennosides (Senokot) 17.2 mg PO Q12H PRN PRN Reason: Moderate Constipation Sodium Chloride (Ns Flush) 2 ml IV.FLUSH PRN PRN PRN Reason: FLUSH AFTER USING IV ACCESS Last Admin: 08/15/18 10:39 Dose: 2 ml Verapamil HCl (Isoptin Sr) 180 mg PO DAILY [facility] Exam Vital signs: Vital Signs 08/15/18 09:46 08/15/18 09:52 08/15/18 10:31 Temperature 97.9 F Pulse Rate 95 H 89 Respiratory Rate 18 19 Blood Pressure 123/81 133/86 Pulse Oximetry 94 L 95 95 Intake & Output 08/14/18 08/15/18 08/15/18 18:59 06:59 18:59 Intake Total 350 / 350 Balance 350 / 350 Weight 72.575 kg Intake: IV 350 / 350 Azithromycin Inj 500 MG In NS 250 / 250 Inj 250 ML @ 250 mls/hr IV.SIG ONCE ONE Rx#:[id number] Rocephin Inj 2,000 MG In NS Inj 100 / 100 100 ML @ 200 mls/hr IV.SIG ONCE ONE Rx#:[id number] - Constitutional no acute distress, cooperative - Routine HEENT Exam Head: Present: normocephalic, atraumatic Eye: Present: EOMI, PERRL. Absent: conjunctival icterus, scleral injection ENT: Present: mucous membranes moist - Routine Neck Exam Present: supple, trachea midline. Absent: JVD, lymphadenopathy, thyromegaly, tenderness - Routine Chest/Breast/Axilla Exam Chest wall: Present: tenderness Comments: chest wall tenderness to palpation noted over the L lower axillary line - Routine Respiratory Exam Present: CTA bilaterally, crackles. Absent: accessory muscle use, respiratory distress Comments: minimal left basilar crackles - Routine Cardiovascular Exam Present: RRR, S1, S2. Absent: murmur, gallop, rubs - Routine Abdominal Exam Present: soft, normoactive bowel sounds, distended. Absent: tenderness - Routine Extremities Exam Present: pulses intact. Absent: cyanosis, clubbing, edema - Routine Skin Exam Present: intact, petechiae, ecchymosis Comments: area of ecchymosis noted over the left hip from previous fall scattered areas of excoriation noted over back with petechiae - Routine Neurological Exam Present: alert, oriented X3 Results - Labs CBC & Chem 7: 08/15/18 10:30 08/15/18 10:30 Labs: Short CBC 08/15/18 Range/Units 10:30 WBC 4.1 (4.0-11.0) th/mm3 Hgb 12.7 L (13.0-17.0) gm/dL Hct 38.3 L (39.0-51.0) % Plt Count 59 L (150-450) th/mm3 BMP 08/15/18 10:30 Sodium 142 Potassium 3.6 Chloride 109 H Carbon Dioxide 25.9 BUN 13 Creatinine 0.76 Calcium 7.8 L Cardiac Enzymes 08/15/18 Range/Units 10:30 Troponin I Less than 0.02 L (0.02-0.05) ng/mL Liver Function 08/15/18 Range/Units 10:30 Total Bilirubin 2.1 H (0.2-1.0) mg/dL AST 29 (15-37) U/L ALT 23 (12-78) U/L Alkaline Phosphatase 113 (45-117) U/L Albumin 2.4 L (3.4-5.0) g/dL - Imaging Impressions Abdomen/Pelvis CT 08/15/18 10:17 CONCLUSION: 1. No acute abnormality is identified to explain the left sided abdominal pain. There is a T11 compression fracture that was likely present on the prior study. 2. Cirrhotic liver with enhancing subcapsular mass in the right liver measuring 3.4 cm. This lesion is highly suspicious for hepatocellular carcinoma. Consider additional characterization with liver protocol MRI with and without contrast or consider gastroenterology consultation and possible biopsy. 3. In addition to the cirrhosis there are findings related to portal hypertension including moderate ascites and splenomegaly. These findings suggest portal hypertension. 4. Small bilateral pleural effusions, left larger than right, with fluid in the posterior mediastinum adjacent to the herniated fat and hiatal hernia. Chest X-Ray 08/15/18 10:17 CONCLUSION: 1. Mild left lower lobe airspace disease with trace left pleural effusion. Caprini VTE Risk Assessment Caprini VTE Risk Assessment: Moderate/High Risk (score >= 2) Caprini Risk Assessment Model: Point Value = 1 Point Value = 2 Point Value = 3 Point Value = 5 Age 41-60 Minor surgery BMI > 25 kg/m2 Swollen legs Varicose veins or History of unexplained or recurrent spontaneous Oral contraceptives or hormone replacement Sepsis (< 1 month) Serious lung disease, including pneumonia (< 1 month) Abnormal pulmonary function Acute myocardial infarction Congestive heart failure (< 1 month) History of inflammatory bowel disease Medical patient at bed rest Age 61-74 Arthroscopic surgery Major open surgery (> 45 min) Laparoscopic surgery (> 45 min) Malignancy Confined to bed (> 72 hours) Immobilizing plaster cast Central venous access Age >= 75 History of VTE Family history of VTE Factor V Leiden Prothrombin [id number] Lupus anticoagulant Anticardiolipin antibodies Elevated serum homocysteine Heparin-induced thrombocytopenia Other congenital or acquired thrombophilia Stroke (< 1 month) Elective arthroplasty Hip, pelvis, or leg fracture Acute spinal cord injury (< 1 month) Prophylaxis Regimen: Total Risk Factor Score Risk Level Prophylaxis Regimen 0-1 Low Early ambulation 2 Moderate Order ONE of the following: *Sequential Compression Device (SCD) *Heparin 5000 units SQ BID 3-4 Higher Order ONE of the following medications: *Heparin 5000 units SQ TID *Enoxaparin/Lovenox 40 mg SQ daily (WT < 150 kg, CrCl > 30 mL/min) *Enoxaparin/Lovenox 30 mg SQ daily (WT < 150 kg, CrCl > 10-29 mL/min) *Enoxaparin/Lovenox 30 mg SQ BID (WT < 150 kg, CrCl > 30 mL/min) AND/OR *Sequential Compression Device (SCD) 5 or more Highest Order ONE of the following medications: *Heparin 5000 units SQ TID (Preferred with Epidurals) *Enoxaparin/Lovenox 40 mg SQ daily (WT < 150 kg, CrCl > 30 mL/min) *Enoxaparin/Lovenox 30 mg SQ daily (WT < 150 kg, CrCl > 10-29 mL/min) *Enoxaparin/Lovenox 30 mg SQ BID (WT < 150 kg, CrCl > 30 mL/min) AND *Sequential Compression Device (SCD) Assessment and Plan - Assessment (1) Cirrhosis of liver Code(s): K74.60 - Unspecified cirrhosis of liver Status: Acute Plan: -continue to monitor clinical status for signs of encephalopathy, GI bleed or other sequelae associated with liver pathology -avoid hepatotoxic agents -diurese with IV Lasix for fluid overload (2) Liver mass Code(s): R16.0 - Hepatomegaly, not elsewhere classified Status: Acute Plan: CT scan demonstrated 3.4cm mass in the R liver paired with pt hx of HCV, suspicious for hepatocellular carcinoma -MRI ordered, liver protocol to better evaluate the lesion. -May need inpatient vs outpatient biopsy of liver mass (3) Pleural effusion Code(s): J90 - Pleural effusion, not elsewhere classified Status: Acute - Plan Left rib pain: -lidocaine patch to the affected area -pain medication PRN DVT prophylaxis: SCD Diet: cardiac diet Ambulate with assistance due to high fall risk - Attending Attestation The exam, history, and the medical decision-making described in the above note were completed with the assistance of the senior medical student Mane Schmidt. I reviewed and agree with the findings presented. I attest that I had a [id number]-[id number] encounter with the patient on the same day, and personally performed and documented my assessment and findings in the medical record. - Workup as detailed above. Fluid overload likely from liver cirrhosis. Diuresis with Lasix. Monitor for progress. Doubt pneumonia. Will monitor for signs of infection. Follow-up MRI of the abdomen regarding the liver lesion. - I had an extensive discussion with the patient's at bedside regarding the liver lesion. They do want to further evaluate with the MRI but she indicates if the mass is confirmed, she would not want to proceed with any biopsy or further workup/treatment. - Goal for now is to control his symptoms so he can return to his previous living condition. - He will be treated with Lasix and pain control. Follow up in AM. (1) Cirrhosis of liver Qualifiers: Hepatic cirrhosis type: unspecified hepatic cirrhosis Ascites presence: with ascites Qualified Code(s): K74.60 - Unspecified cirrhosis of liver; R18.8 - Other ascites
[2018-08-15] MEDS ORDERED: Gadobutrol PF 7.5 MMOL/7.5 ML Vial (for RAD) IV.SIG ONE (16:55)
--- NOTE | 2018-08-15 17:50 | MR ---
EXAM DATE: 08/15/2018 4:16 PM EDT AGE/SEX: 87 years / Male INDICATIONS: Liver mass. Abdominal pain. CLINICAL DATA: This is the patient's initial encounter. Patient reports that signs and symptoms have been present for 4 - 6 days and indicates a pain score of 7/10. MEDICAL/SURGICAL HISTORY: Hypertension. Hepatitis C. Cirrhosis. Appendectomy. COMPARISON: [facility] [place], CT ABDOMEN & PELVIS W CONTRAST, 08/15/2018. . TECHNIQUE: Multiplanar, multisequence images of the abdomen were obtained prior to and following adm inistration of 7.2 ml Gadavist (gadobutrol) contrast as a single exam dose with dynamic multiphase te chnique. FINDINGS: Liver: The liver measures 14.3 cm in length. No fat or iron deposition is appreciated. The lesion augie ntified on the prior CT is likely in segment 8 but the venous anatomy is difficult to identify given the respiratory motion artifact. There is a subcapsular and mildly exophytic lesion which demonstrate s minimal if any increased T2 or diffusion signal. However, it demonstrates mild arterial enhancement and subsequently becomes isointense to the background liver. It measures approximately 3.5 x 2.2 cm. No capsule or intralesional fat is appreciated. Hepatic and portal venous structures are not well ev aluated secondary to the motion artifact but no venous thrombosis is identified. No other liver lesio n is seen. Gallbladder: Gallbladder is distended. Small stone documented on the prior study is not definitively seen. Spleen: The spleen is enlarged measuring 16.3 cm in length. No focal lesion is seen. Pancreas: There is mild edema surrounding the pancreas. A bilobed cystic lesion abuts and likely alejandro es from the tail the pancreas measuring 1.6 x 0.9 cm. There is no duct dilatation. Adrenals: Adrenal glands are not well visualized but demonstrated no abnormality on the earlier study . Kidneys: Symmetric size and enhancement. No hydronephrosis or mass. Other: There is severe atherosclerotic disease of the abdominal aorta with ectasia measuring up to 3 cm. No concerning lymphadenopathy is identified. There is a small volume of free fluid in the abdomen . Bilateral pleural effusions are present. A fluid remains loculated in the posterior mediastinum. CONCLUSION: 1. Cirrhotic liver with enhancing 3.5 cm right lobe liver lesion likely within segment 8. It demonst rates arterial enhancement and features suspicious for hepatocellular carcinoma. No other liver lesio n is identified and no venous thrombosis is seen. 2. Findings are related to portal hypertension including ascites and splenomegaly. 3. 16 mm cystic lesion likely arising from the tail the pancreas. Attention can be paid to this at f ollow-up imaging. 4. Stable small bilateral pleural effusions and loculated fluid in the posterior mediastinum. Electronically signed by: Ismael Lim MD 08/15/2018 5:48 PM EDT
--- NOTE | 2018-08-15 20:41 | ECG ---
Date Performed: 08/15/2018 Time Performed: 10:24:04 PTAGE: 87 years EKG: Sinus rhythm WITH OCCASIONAL SUPRAVENTRICULAR PREMATURE COMPLEXES RIGHT BUNDLE BRANCH BLOCK ABNORMAL ECG PREVIOUS TRACING : 08/15/2017 06.55 Since the previous tracing, no significant change noted DOCTOR: Edilia Haskins Interpretating Date/Time 08/15/2018 20:40:32
[2018-08-15] MEDS: Budesonide-Formoterol 80/4.5 MCG 6.9 GM Inhaler INH SCH (21:52)
[2018-08-15 22:39] LABS: Bilirubin,Urine Negative (Negative); Clarity,Urine Clear (Clear); Color,Urine Yellow (Yellw/Straw); Glucose,Urine (UA) Negative (Negative); Leukocyte Esterase,Urine Negative (Negative); Nitrite,Urine Negative (Negative); Specific Gravity,Urine 1.014 (1.002-1.035); Squamous Epithelial Cell,Urine <1 /hpf (0-5); Urobilinogen,Urine 4 or Greater mg/dL (Less than 2)
[2018-08-16 07:53] LABS: Eos # (Auto) 0.2 th/mm3 (0.0-0.4); Eos % (Auto) 4.4 % (0.0-4.0); Hematocrit 35.6 % (39.0-51.0); Hemoglobin 12.1 gm/dL (13.0-17.0); Lymph # (Auto) 0.8 th/mm3 (1.0-4.8); Lymph % (Auto) 20.5 % (9.0-44.0); Mean Corpuscular HGB Conc 33.9 % (32.0-36.0); Mean Corpuscular Hemoglobin 31.6 pg (27.0-34.0); Mean Corpuscular Volume 93.2 fL (80.0-100.0); Mean Platelet Volume 7.2 fL (7.0-11.0); Mono # (Auto) 0.3 th/mm3 (0.0-0.9); Mono % (Auto) 9.3 % (0.0-8.0); Neut # (Auto) 2.4 th/mm3 (1.8-7.7); Neut % (Auto) 64.8 % (16.0-70.0); Platelet Count 51 th/mm3 (150-450); Red Blood Count 3.82 mil/mm3 (4.50-5.90); White Blood Count 3.7 th/mm3 (4.0-11.0)
[2018-08-16 08:17] LABS: Anion Gap 7 meq/L (5-15); Blood Urea Nitrogen 12 mg/dL (7-18); Calcium 7.7 mg/dL (8.5-10.1); Carbon Dioxide 27.7 meq/L (21.0-32.0); Chloride 106 meq/L (98-107); Glomerular Filtration Rate Greater Than 89 mL/min (>89); Glucose,Random 94 mg/dL (74-106); Potassium 3.6 meq/L (3.5-5.1); Sodium 141 meq/L (136-145)
[2018-08-16 08:37] LABS: Ovalocytes 1+; Platelet Morphology Normal (Normal)
[2018-08-16] MEDS: Escitalopram 10 MG Tablet PO SCH (08:38)
[2018-08-16] MEDS: Budesonide-Formoterol 80/4.5 MCG 6.9 GM Inhaler INH SCH ×2 (08:39→20:48)
[2018-08-16] MEDS ORDERED: Furosemide 40 MG Tablet PO SCH (09:00)
[2018-08-16] MEDS: Lidocaine 5% Patch T-DERMAL SCH (10:22)
--- NOTE | 2018-08-16 12:18 | P.PNIM ---
Subjective Interval history: Patient initially seen in the morning. He was doing great and felt much better. However late in the afternoon, his blood pressure dropped and he felt lightheaded. Lasix discontinued. Physical Exam Vital signs: Vital Signs 08/15/18 15:30 08/15/18 16:00 08/15/18 20:00 Temperature 97.3 F L 97.4 F L Pulse Rate 80 75 81 Respiratory Rate 18 14 20 Blood Pressure 160/96 H 137/88 140/95 H Pulse Oximetry 95 95 95 08/15/18 23:49 08/16/18 00:00 08/16/18 04:00 Temperature 98.0 F 97.6 F Pulse Rate 72 75 94 H Respiratory Rate 20 20 Blood Pressure 167/88 H 144/78 H Pulse Oximetry 96 94 L 08/16/18 08:00 08/16/18 09:00 Temperature 98.0 F Pulse Rate 100 H 95 H Respiratory Rate 20 Blood Pressure 116/73 Pulse Oximetry 93 L Intake & Output 08/15/18 08/16/18 08/16/18 18:59 06:59 18:59 Intake Total 350 / 350 280 / 280 Balance 350 / 350 280 / 280 Weight 72.575 kg 64.8 kg Intake: IV 350 / 350 Azithromycin Inj 500 MG In NS 250 / 250 Inj 250 ML @ 250 mls/hr IV.SIG ONCE ONE Rx#:[id number] Rocephin Inj 2,000 MG In NS Inj 100 / 100 100 ML @ 200 mls/hr IV.SIG ONCE ONE Rx#:[id number] Oral 280 / 280 Other: # Urine Diapers 3 Weight On Admission 64.8 kg Narrative: GENERAL: Elderly male in no acute distress. CARDIOVASCULAR: Normal rate and regular rhythm without murmurs, gallops, or rubs. RESPIRATORY: Good respiratory efforts. Breath sounds equal and clear to auscultation bilaterally. GASTROINTESTINAL: Abdomen soft, mild distention with some fluid. MUSCULOSKELETAL: Extremities without cyanosis, or edema. NEURO: Alert & Oriented to person and place but not situation. Can move extremities x4 but is generally weak. PSYCH: Appropriate mood and affect. Results - Labs CBC & Chem 7: 08/16/18 07:10 08/16/18 07:10 Laboratory Results - last 24 hr 08/15/18 08/16/18 08/16/18 22:22 07:10 07:10 WBC 3.7 L RBC 3.82 L Hgb 12.1 L Hct 35.6 L MCV 93.2 MCH 31.6 MCHC 33.9 RDW 19.0 H Plt Count 51 L MPV 7.2 Prelim Diff (Auto) Slide review pending Neut % (Auto) 64.8 Lymph % (Auto) 20.5 Branch % (Auto) 9.3 H Eos % (Auto) 4.4 H Baso % (Auto) 1.0 Neut # (Auto) 2.4 Lymph # (Auto) 0.8 L Branch # (Auto) 0.3 Eos # (Auto) 0.2 Baso # (Auto) 0.0 WBC Differential . Diff Scan Auto diff confirmed Differential Comment . Platelet Estimate Low L Platelet Morphology Normal Ovalocytes 1+ H Sodium 141 Potassium 3.6 Chloride 106 Carbon Dioxide 27.7 Anion Gap 7 BUN 12 Creatinine 0.66 Estimated GFR Greater than 89 Random Glucose 94 Calcium 7.7 L Urine Color Yellow Urine Clarity Clear Urine pH 6.0 Ur Specific Lorida 1.014 Urine Protein Negative Urine Glucose (UA) Negative Urine Ketones Negative Urine Occult Blood Small H Urine Nitrate Negative Urine Bilirubin Negative Urine Urobilinogen 4 or greater Ur Leukocyte Esterase Negative Urine RBC 2 Urine WBC 2 Ur Squamous Epith Cells <1 Micro UA Comment Culture not ind Ur Microscopic Review Not Reportable Urine Culture Comments Culture not ind Microbiology 08/15/18 12:00 Blood - Peripheral Aerobic Blood Culture - Preliminary No growth in 1 day 08/15/18 12:00 Blood - Peripheral Anaerobic Blood Culture - Preliminary No growth in 1 day 08/15/18 11:45 Blood - Peripheral Aerobic Blood Culture - Preliminary No growth in 1 day 08/15/18 11:45 Blood - Peripheral Anaerobic Blood Culture - Preliminary No growth in 1 day - Imaging Impressions Abdomen MRI 08/15/18 00:00 CONCLUSION: 1. Cirrhotic liver with enhancing 3.5 cm right lobe liver lesion likely within segment 8. It demonstrates arterial enhancement and features suspicious for hepatocellular carcinoma. No other liver lesion is identified and no venous thrombosis is seen. 2. Findings are related to portal hypertension including ascites and splenomegaly. 3. 16 mm cystic lesion likely arising from the tail the pancreas. Attention can be paid to this at follow-up imaging. 4. Stable small bilateral pleural effusions and loculated fluid in the posterior mediastinum. Abdomen/Pelvis CT 08/15/18 10:17 CONCLUSION: 1. No acute abnormality is identified to explain the left sided abdominal pain. There is a T11 compression fracture that was likely present on the prior study. 2. Cirrhotic liver with enhancing subcapsular mass in the right liver measuring 3.4 cm. This lesion is highly suspicious for hepatocellular carcinoma. Consider additional characterization with liver protocol MRI with and without contrast or consider gastroenterology consultation and possible biopsy. 3. In addition to the cirrhosis there are findings related to portal hypertension including moderate ascites and splenomegaly. These findings suggest portal hypertension. 4. Small bilateral pleural effusions, left larger than right, with fluid in the posterior mediastinum adjacent to the herniated fat and hiatal hernia. Assessment and Plan - Assessment (1) Cirrhosis of liver Code(s): K74.60 - Unspecified cirrhosis of liver Status: Acute Plan: -Patient previously treated for hepatitis C. However known cirrhosis. He does have evidence of fluid overload. Will decrease Lasix as his blood pressure is not able to tolerate the high dose. -avoid hepatotoxic agents -diurese with IV Lasix for fluid overload -Blood pressure is not able to tolerate beta-blockers or spironolactone at this point. (2) Liver mass Code(s): R16.0 - Hepatomegaly, not elsewhere classified Status: Acute Plan: CT scan demonstrated 3.4cm mass in the R liver paired with pt hx of HCV, suspicious for hepatocellular carcinoma -MRI also confirmed this finding is suspicious for hepatocellular carcinoma. I discussed this with the patient's and surrogate at length. They do not want to proceed with any workup at this point. He said he will follow-up with PCP and may consider repeating the exam in the future but would not plan on going through with a biopsy or treatment given his frailty. (3) Pleural effusion Code(s): J90 - Pleural effusion, not elsewhere classified Status: Acute - Plan Left rib pain: -lidocaine patch to the affected area -Sargent PRN Hypotension: Secondary to diuretics. Hold Lasix for the rest of the day. Continue to monitor. DVT prophylaxis: SCD Diet: cardiac diet Ambulate with assistance due to high fall risk Discharge Planning: Plan to discharge tomorrow if blood pressure stable (1) Cirrhosis of liver Qualifiers: Hepatic cirrhosis type: unspecified hepatic cirrhosis Ascites presence: with ascites Qualified Code(s): K74.60 - Unspecified cirrhosis of liver; R18.8 - Other ascites
[2018-08-17] MEDS: Escitalopram 10 MG Tablet PO SCH (08:20)
[2018-08-17] MEDS: Lidocaine 5% Patch T-DERMAL SCH (08:20)
[2018-08-17] MEDS: Budesonide-Formoterol 80/4.5 MCG 6.9 GM Inhaler INH SCH (08:21)
[2018-08-17 09:58] VITALS: BP 110/60; RESP 20; TEMP 98.1; O2SAT 95
--- NOTE | 2018-08-17 13:29 | P.DS ---
Date of admission: 08/15/18 13:57 Primary care physician: UNKNOWN Brief History from admission: This is an 87yo male who presented to the ED with his for left rib pain. Pt was a poor historian, therefore majority of the interview was obtained from the . Per the , the pt had a mechanical fall 4 days ago, and has been complaining of L sided pain since then. He has a history of a rib fracture about 8 months ago, and his believes the fall aggravated it. She states that over the four days, the pain has been increasing and started to radiate to his abdomen. She gave him two Tylenol last night for the pain with little relief , and has not tried anything else. The pt reports that palpating the area, moving or taking a deep breath increases his pain, which he describes as stabbing. He reports some relief since he received the Lidocaine patch in the emergency room. Pt is also currently being treated with Cipro for a UTI that was diagnosed outpatient. He has a followup appt with his PCP on August 22. He has been on antibiotics for 5 days. Per the , she has noticed a decrease in appetite over the past two weeks, but no change in weight. 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 Currently, pt denies any new numbness or weakness, nausea , vomiting, diarrhea, constipation, fevers, chills, cough or sick contacts. PMH: hepatitis C, treated with Harvoni by Dr. 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 He is eager to go home. No further episode of lightheadedness. Discussed with his at bedside. She feels comfortable with taking him home. DS: Diagnosis - Discharge Diagnosis (1) Cirrhosis of liver Status: Acute (2) Liver mass Status: Acute (3) Pleural effusion Status: Acute DS: Medications - Discharge Medications Prescriptions: furosemide 40 mg PO DAILY #30 tab hydrocodone-acetaminophen 1 tab PO Q4H PRN #12 tab PRN Reason: Pain Scale 6 To 10 lidocaine [Lidoderm] 1 patch TRANSDERMAL DAILY #20 ea DS: Summary Hospital Course: 87-year-old male initially presented for left rib pain after mechanical fall. The patient previously had rib fractures and injured the same site. No new fractures noted. The patient has liver cirrhosis and he was found to have evidence of fluid overload including mild bilateral pleural effusion. The patient's CAT scan also showed a liver mass. An MRI was obtained which also confirmed the liver mass that is suspicious for hepatocellular carcinoma. The patient was treated with lidocaine patch with good relief of his pain. He was given Lasix which improved his fluid status but he experienced mild hypotension and lightheadedness therefore Lasix frequency was reduced. He quickly improved and returned to his baseline. He is discharged home on oral Lasix. His blood pressure would not tolerate beta-chip or spironolactone at this point. Regarding the liver mass, I had an extensive discussion with I discussed this with the patient's and surrogate at length. They do not want to proceed with any workup at this point. He said he will follow-up with PCP and may consider repeating the exam in the future but would not plan on going through with a biopsy or treatment given his frailty. The patient remained asymptomatic from a respiratory standpoint. He was counseled on breathing exercises. He is discharged on lidocaine patch and [place] for breakthrough pain. - Time Spent with Patient Total time spent providing and/or coordinating discharge services: Greater than 30 minutes - Quality: VTE Deep Vein Thrombosis/Pulmonary Embolism Present on Admission: No Exam Vital signs: Vital Signs 08/16/18 16:00 08/16/18 20:00 08/16/18 23:59 Temperature 97.2 F L 97.7 F Pulse Rate 85 57 L 58 L Respiratory Rate 20 20 Blood Pressure 98/51 L 104/57 L Pulse Oximetry 93 L 93 L 08/17/18 00:00 08/17/18 04:00 08/17/18 04:03 Temperature 97.5 F L 97.6 F Pulse Rate 63 71 70 Respiratory Rate 18 18 Blood Pressure 122/59 L 131/61 Pulse Oximetry 94 L 93 L 08/17/18 08:00 Temperature 98.1 F Pulse Rate 79 Respiratory Rate 20 Blood Pressure 110/60 Pulse Oximetry 95 Intake & Output 08/16/18 08/17/18 08/17/18 18:59 06:59 18:59 Intake Total 480 / 480 240 / 240 Balance 480 / 480 240 / 240 Weight 64.9 kg Intake: Oral 480 / 480 240 / 240 Other: # Voids 2 2 # Bowel Movements 0 Narrative: GENERAL: Elderly male in no acute distress. CARDIOVASCULAR: Normal rate and regular rhythm without murmurs, gallops, or rubs. RESPIRATORY: Good respiratory efforts. Breath sounds equal and clear to auscultation bilaterally. GASTROINTESTINAL: Abdomen soft, mild distention with some fluid. MUSCULOSKELETAL: Extremities without cyanosis, or edema. NEURO: Alert & Oriented to person and place but not situation. Can move extremities x4 but is generally weak. PSYCH: Appropriate mood and affect. Results Procedures completed during hospitalization: None Labs on day of discharge: Preliminary micro results at discharge 08/15/18 12:00 Aerobic Blood Culture - Preliminary Blood - Peripheral No growth in 2 days Anaerobic Blood Culture - Preliminary No growth in 2 days 08/15/18 11:45 Aerobic Blood Culture - Preliminary Blood - Peripheral No growth in 2 days Anaerobic Blood Culture - Preliminary No growth in 2 days - Impressions ITS Impressions Abdomen MRI 08/15/18 00:00 CONCLUSION: 1. Cirrhotic liver with enhancing 3.5 cm right lobe liver lesion likely within segment 8. It demonstrates arterial enhancement and features suspicious for hepatocellular carcinoma. No other liver lesion is identified and no venous thrombosis is seen. 2. Findings are related to portal hypertension including ascites and splenomegaly. 3. 16 mm cystic lesion likely arising from the tail the pancreas. Attention can be paid to this at follow-up imaging. 4. Stable small bilateral pleural effusions and loculated fluid in the posterior mediastinum. Abdomen/Pelvis CT 08/15/18 10:17 CONCLUSION: 1. No acute abnormality is identified to explain the left sided abdominal pain. There is a T11 compression fracture that was likely present on the prior study. 2. Cirrhotic liver with enhancing subcapsular mass in the right liver measuring 3.4 cm. This lesion is highly suspicious for hepatocellular carcinoma. Consider additional characterization with liver protocol MRI with and without contrast or consider gastroenterology consultation and possible biopsy. 3. In addition to the cirrhosis there are findings related to portal hypertension including moderate ascites and splenomegaly. These findings suggest portal hypertension. 4. Small bilateral pleural effusions, left larger than right, with fluid in the posterior mediastinum adjacent to the herniated fat and hiatal hernia. Chest X-Ray 08/15/18 10:17 CONCLUSION: 1. Mild left lower lobe airspace disease with trace left pleural effusion. Discharge Plan - Discharge Disposition Patient Disposition: Discharge Home - Discharge Condition Condition: Stable - Discharge Order Discharge Orders: Discharge Order (Routine); Ordered 08/17/18 Ordered By: Jose Alfredo Street - Physicians Team Primary Care Provider: UNKNOWN, Attending Provider: Jose Alfredo Street Other Providers: Todd Brooks
[2018-08-17 13:43] VITALS: PULSE 75
== END 2018-08-17 12:48 | disposition home or self-care (01) ==
LOC: NEPC 09:36 → NEDA 13:57 → N04 18:00
PROVIDERS: ADMIT Family Medicine; ATTEND Family Medicine